=== PATIENT | female | born 1940 | race African-American/Black ===

== ENCOUNTER 2023-08-20 04:25 | Inpatient (IN) | payer OTHER ==
[2023-08-20] MEDS ORDERED: ACETAMINOPHEN 1000 MG/100 ML BAG IVPB ONE (04:40)
[2023-08-20] MEDS ORDERED: methylPREDNISolone NA SUCC 125 MG/2 ML VIAL IVPUSH ONE (04:41)
[2023-08-20] MEDS: ALBUTEROL SO4 2.5/IPRATROPIUM 0.5 INH SOL 3 ML VIAL.NEB. NEB SCH ×8 (04:45→23:48)
[2023-08-20] MEDS ORDERED: ALBUTEROL SO4 2.5/IPRATROPIUM 0.5 INH SOL 3 ML VIAL.NEB. NEB ONE (04:55)
[2023-08-20] MEDS ORDERED: ACETAMINOPHEN INJECTION 100 ML IVPB ONE (04:55)
[2023-08-20] MEDS ORDERED: methylPREDNISolone NA SUCC 125 MG/2 ML VIAL ONE (04:55)
[2023-08-20 05:15] LABS: VENOUS BASE EXCESS 2.8 mmol/L (-2-2); VENOUS O2 SATURATION 47.8 % (70-80); VENOUS PCO2 50.6 mmHg (38-52); VENOUS PH 7.374 (7.310-7.410)
[2023-08-20 05:18] LABS: HEMATOCRIT 33.8 % (32.4-45.2); HEMOGLOBIN 10.4 GM/dL (10.7-15.3); MCH 25.9 pg (25.7-33.7); MCHC 30.9 g/dl (32.0-36.0); MEAN CELL VOLUME 83.8 fl (80-96); MEAN PLT VOLUME 9.2 fl (7.5-11.1); PLATELET COUNT 204 10^3/uL (134-434); RBC 4.03 M/mm3 (3.60-5.2); RDW 16.8 % (11.6-15.6); WHITE BLOOD COUNT 8.2 K/mm3 (4.0-10.0)
[2023-08-20 05:43] LABS: POTASSIUM 4.1 mmol/L (3.5-5.1)
[2023-08-20 05:45] LABS: CALCIUM 9.7 mg/dL (8.5-10.1)
[2023-08-20 05:46] LABS: ALBUMIN 2.6 g/dl (3.4-5.0); BLOOD UREA NITROGEN 31.8 mg/dL (7-18); MAGNESIUM 1.9 mg/dL (1.8-2.4)
[2023-08-20 05:49] LABS: CREATININE 2.3 mg/dL (0.55-1.3)
[2023-08-20 05:51] LABS: BILIRUBIN,TOTAL 0.5 mg/dL (0.2-1); TOT PROT 6.1 g/dl (6.4-8.2)
[2023-08-20 05:54] LABS: N-TERMINAL BNP 1722.1 pg/ml (5-450)
[2023-08-20] MEDS ORDERED: ALBUTEROL SO4 2.5/IPRATROPIUM 0.5 INH SOL 3 ML VIAL.NEB. NEB SCH (08:45)
[2023-08-20] MEDS ORDERED: FERROUS SO4 325 MG TABLET (FP) ONE (08:50)
[2023-08-20] MEDS ORDERED: SPIRONOLACTONE 25 MG TABLET ONE (08:50)
[2023-08-20] MEDS: lamoTRIgine 25 MG TABLET PO SCH (09:16)
[2023-08-20] MEDS: FERROUS SO4 325 MG TABLET (FP) PO SCH (09:16)
[2023-08-20] MEDS: MAGNESIUM OXIDE 400 MG TABLET (FP) PO SCH ×2 (09:16→22:10)
[2023-08-20] MEDS: SPIRONOLACTONE 25 MG TABLET PO SCH (09:16)
[2023-08-20] MEDS ORDERED: TORSEMIDE 20 MG TABLET (FP) PO SCH (10:00)
[2023-08-20] MEDS ORDERED: PATIENT'S OWN MEDICATION (NON-FORMULARY) (Brimonidine Tartrate/Timolol [Combigan 0.2%-0.5% OU SCH ×2 (10:00)
[2023-08-20] MEDS ORDERED: BRIMONIDINE TARTRATE 0.2% OPHTHALMIC 5 ML BOTTLE OU SCH (10:00)
[2023-08-20] MEDS ORDERED: APIXABAN 5 MG TABLET PO SCH ×2 (10:00)
[2023-08-20] MEDS ORDERED: TIMOLOL 0.5% OPHTHALMIC SOL 5 ML BOTTLE OU SCH (10:00)
[2023-08-20] MEDS: ALLOPURINOL 100 MG TABLET (FP) PO SCH (10:40)
[2023-08-20] MEDS: PATIENT'S OWN MEDICATION (NON-FORMULARY) (Fluticasone/Vilanterol 1 PUFF Inhaler) IH SCH (10:41)
[2023-08-20] MEDS: APIXABAN 2.5 MG TABLET PO SCH ×2 (10:42→22:11)
[2023-08-20] MEDS: BENZOCAINE/MENTH/CETYLPYRD CL 1 EACH LOZENGE MM PRN (11:26)
[2023-08-20] MEDS ORDERED: BENZOCAINE/MENTH/CETYLPYRD CL 1 EACH LOZENGE MM ONE (11:26)
[2023-08-20] MEDS ORDERED: guaiFENesin/CODEINE 10 ML UNIT-DOSE CUPS ONE (11:26)
[2023-08-20] MEDS: guaiFENesin 200 MG/10 ML 10 ML UNIT-DOSE CUPS PO PRN ×2 (11:26→20:23)
[2023-08-20] MEDS ORDERED: LATANOPROST 0.005% OPHTH SOLN 2.5ML BOTTLE OU SCH ×2 (11:30→22:00)
[2023-08-20] MEDS ORDERED: PANTOPRAZOLE 40 MG TABLET PO ONE (11:41)
[2023-08-20] MEDS: PANTOPRAZOLE 40 MG TABLET PO SCH (11:43)
[2023-08-20] MEDS ORDERED: FUROSEMIDE 40 MG/4 ML INJECTABLE VIAL IVPUSH ONE (15:00)
[2023-08-20] MEDS: ACETAMINOPHEN 325 MG TABLET (FP) PO PRN (20:22)
[2023-08-20] MEDS ORDERED: methylPREDNISolone NA SUCC 40 MG/1 ML VIAL IVPUSH ONE (22:00)
[2023-08-20] MEDS ORDERED: methylPREDNISolone NA SUCC 40 MG/1 ML VIAL IVPUSH SCH (22:00)
[2023-08-20] MEDS: ATORVASTATIN CA 10 MG TABLET (FP) PO SCH (22:10)
[2023-08-20] MEDS: LATANOPROST 0.005% OPHTH SOLN 2.5ML BOTTLE OU SCH (22:45)
[2023-08-21] MEDS: ALBUTEROL SO4 2.5/IPRATROPIUM 0.5 INH SOL 3 ML VIAL.NEB. NEB SCH ×5 (04:10→20:15)
[2023-08-21 07:58] LABS: BASO % 0.1 % (0-2.0); HEMATOCRIT 33.9 % (32.4-45.2); HEMOGLOBIN 10.8 GM/dL (10.7-15.3); LYMPH % 13.8 % (8-40); MCH 26.1 pg (25.7-33.7); MCHC 31.9 g/dl (32.0-36.0); MEAN PLT VOLUME 8.7 fl (7.5-11.1); NEUT % 83.1 % (42.8-82.8); PLATELET COUNT 210 10^3/uL (134-434); RBC 4.14 M/mm3 (3.60-5.2); RDW 16.9 % (11.6-15.6); WHITE BLOOD COUNT 11.1 K/mm3 (4.0-10.0)
[2023-08-21 07:59] LABS: POTASSIUM 4.2 mmol/L (3.5-5.1)
[2023-08-21 08:01] LABS: CALCIUM 10.6 mg/dL (8.5-10.1)
[2023-08-21 08:02] LABS: MAGNESIUM 1.8 mg/dL (1.8-2.4)
[2023-08-21 08:03] LABS: BLOOD UREA NITROGEN 34.6 mg/dL (7-18)
[2023-08-21 08:04] LABS: ALBUMIN 2.6 g/dl (3.4-5.0)
[2023-08-21 08:05] LABS: CREATININE 2.4 mg/dL (0.55-1.3)
[2023-08-21 08:07] LABS: PHOSPHOROUS 3.2 mg/dL (2.5-4.9); TOT PROT 6.3 g/dl (6.4-8.2)
[2023-08-21 08:12] LABS: BILIRUBIN,TOTAL 0.4 mg/dL (0.2-1)
[2023-08-21] MEDS: APIXABAN 2.5 MG TABLET PO SCH ×2 (10:56→21:53)
[2023-08-21] MEDS: predniSONE 20 MG TABLET (UD) PO SCH (10:56)
[2023-08-21] MEDS: FERROUS SO4 325 MG TABLET (FP) PO SCH (10:56)
[2023-08-21] MEDS: ALLOPURINOL 100 MG TABLET (FP) PO SCH (10:57)
[2023-08-21] MEDS: SPIRONOLACTONE 25 MG TABLET PO SCH (10:57)
[2023-08-21] MEDS: PANTOPRAZOLE 40 MG TABLET PO SCH (10:57)
[2023-08-21] MEDS: lamoTRIgine 25 MG TABLET PO SCH (10:57)
[2023-08-21] MEDS: MAGNESIUM OXIDE 400 MG TABLET (FP) PO SCH ×2 (10:57→21:54)
[2023-08-21] MEDS: ACETAMINOPHEN 325 MG TABLET (FP) PO PRN (11:10)
[2023-08-21 13:00] LABS: URINE APPEARANCE CLEAR; URINE BILIRUBIN NEGATIVE (NEGATIVE); URINE COLOR YELLOW; URINE GLUCOSE (UA) NEGATIVE (NEGATIVE); URINE KETONE NEGATIVE (NEGATIVE); URINE LEUK ESTERASE NEGATIVE (NEGATIVE); URINE NITRITE NEGATIVE (NEGATIVE); URINE PROTEIN NEGATIVE (NEGATIVE); URINE UROBILINOGEN 0.2 mg/dL (0.2-1.0)
[2023-08-21] MEDS: FUROSEMIDE 40 MG/4 ML INJECTABLE VIAL IVPUSH SCH (14:19)
[2023-08-21] MEDS: BENZOCAINE/MENTH/CETYLPYRD CL 1 EACH LOZENGE MM PRN (20:51)
[2023-08-21] MEDS: ATORVASTATIN CA 10 MG TABLET (FP) PO SCH (21:53)
[2023-08-21] MEDS: LATANOPROST 0.005% OPHTH SOLN 2.5ML BOTTLE OU SCH (21:54)
[2023-08-21] MEDS: PATIENT'S OWN MEDICATION (NON-FORMULARY) (Brimonidine Tartrate/Timolol [Combigan 0.2%-0.5% OU SCH (23:04)
[2023-08-22] MEDS: ALBUTEROL SO4 2.5/IPRATROPIUM 0.5 INH SOL 3 ML VIAL.NEB. NEB SCH ×7 (04:12→23:18)
[2023-08-22] MEDS: FUROSEMIDE 40 MG/4 ML INJECTABLE VIAL IVPUSH SCH ×2 (05:59→14:04)
[2023-08-22] MEDS: BENZOCAINE/MENTH/CETYLPYRD CL 1 EACH LOZENGE MM PRN ×2 (06:01→20:26)
[2023-08-22 06:40] LABS: HEMATOCRIT 35.6 % (32.4-45.2); HEMOGLOBIN 10.9 GM/dL (10.7-15.3); MCH 25.7 pg (25.7-33.7); MCHC 30.7 g/dl (32.0-36.0); MEAN CELL VOLUME 83.7 fl (80-96); MEAN PLT VOLUME 8.8 fl (7.5-11.1); PLATELET COUNT 222 10^3/uL (134-434); RBC 4.26 M/mm3 (3.60-5.2); RDW 16.8 % (11.6-15.6); WHITE BLOOD COUNT 15.4 K/mm3 (4.0-10.0)
[2023-08-22 07:03] LABS: POTASSIUM 3.8 mmol/L (3.5-5.1)
[2023-08-22 07:05] LABS: CALCIUM 9.9 mg/dL (8.5-10.1)
[2023-08-22 07:06] LABS: ALBUMIN 2.6 g/dl (3.4-5.0); BLOOD UREA NITROGEN 39.2 mg/dL (7-18)
[2023-08-22 07:08] LABS: BILIRUBIN,DIRECT 0.1 mg/dL (0.0-0.2); CREATININE 2.2 mg/dL (0.55-1.3)
[2023-08-22 07:10] LABS: BILIRUBIN,TOTAL 0.3 mg/dL (0.2-1); TOT PROT 6.4 g/dl (6.4-8.2)
[2023-08-22 08:56] LABS: ANISOCYTOSIS 2+; MACROCYTOSIS 0; OVALOCYTE 1+; TARGET CELLS 2+; TEAR DROP CELLS 1+
[2023-08-22] MEDS: predniSONE 20 MG TABLET (UD) PO SCH (10:32)
[2023-08-22] MEDS: ALLOPURINOL 100 MG TABLET (FP) PO SCH (10:32)
[2023-08-22] MEDS: FERROUS SO4 325 MG TABLET (FP) PO SCH (10:32)
[2023-08-22] MEDS: SPIRONOLACTONE 25 MG TABLET PO SCH (10:32)
[2023-08-22] MEDS: MAGNESIUM OXIDE 400 MG TABLET (FP) PO SCH ×2 (10:32→23:00)
[2023-08-22] MEDS: APIXABAN 2.5 MG TABLET PO SCH ×2 (10:32→23:00)
[2023-08-22] MEDS: PANTOPRAZOLE 40 MG TABLET PO SCH (10:32)
[2023-08-22] MEDS: lamoTRIgine 25 MG TABLET PO SCH (10:33)
[2023-08-22] MEDS: PATIENT'S OWN MEDICATION (NON-FORMULARY) (Brimonidine Tartrate/Timolol [Combigan 0.2%-0.5% OU SCH ×2 (10:33→23:00)
[2023-08-22] MEDS: LATANOPROST 0.005% OPHTH SOLN 2.5ML BOTTLE OU SCH (22:59)
[2023-08-22] MEDS: guaiFENesin 200 MG/10 ML 10 ML UNIT-DOSE CUPS PO PRN (23:00)
[2023-08-22] MEDS: ATORVASTATIN CA 10 MG TABLET (FP) PO SCH (23:00)
[2023-08-23] MEDS: ALBUTEROL SO4 2.5/IPRATROPIUM 0.5 INH SOL 3 ML VIAL.NEB. NEB SCH ×5 (04:30→20:53)
[2023-08-23] MEDS: FUROSEMIDE 40 MG/4 ML INJECTABLE VIAL IVPUSH SCH ×2 (06:35→13:50)
[2023-08-23] MEDS: guaiFENesin 200 MG/10 ML 10 ML UNIT-DOSE CUPS PO PRN ×3 (06:35→18:00)
[2023-08-23] MEDS: BENZOCAINE/MENTH/CETYLPYRD CL 1 EACH LOZENGE MM PRN ×2 (06:38→13:50)
[2023-08-23] MEDS: lamoTRIgine 25 MG TABLET PO SCH (10:11)
[2023-08-23] MEDS: MAGNESIUM OXIDE 400 MG TABLET (FP) PO SCH ×2 (10:11→21:03)
[2023-08-23] MEDS: predniSONE 20 MG TABLET (UD) PO SCH (10:11)
[2023-08-23] MEDS: PANTOPRAZOLE 40 MG TABLET PO SCH (10:11)
[2023-08-23] MEDS: PATIENT'S OWN MEDICATION (NON-FORMULARY) (Brimonidine Tartrate/Timolol [Combigan 0.2%-0.5% OU SCH ×2 (10:11→21:14)
[2023-08-23] MEDS: APIXABAN 2.5 MG TABLET PO SCH ×2 (10:11→21:03)
[2023-08-23] MEDS: SPIRONOLACTONE 25 MG TABLET PO SCH (10:11)
[2023-08-23] MEDS: ALLOPURINOL 100 MG TABLET (FP) PO SCH (10:11)
[2023-08-23] MEDS: FERROUS SO4 325 MG TABLET (FP) PO SCH (10:11)
[2023-08-23 11:23] LABS: HEMOGLOBIN 12.2 GM/dL (10.7-15.3); LYMPH % 10.3 % (8-40); MCH 25.7 pg (25.7-33.7); MCHC 31.3 g/dl (32.0-36.0); MEAN CELL VOLUME 82.1 fl (80-96); MEAN PLT VOLUME 9.6 fl (7.5-11.1); MONO % 5.7 % (3.8-10.2); PLATELET COUNT 239 10^3/uL (134-434); RBC 4.76 M/mm3 (3.60-5.2); RDW 16.8 % (11.6-15.6); WHITE BLOOD COUNT 17.6 K/mm3 (4.0-10.0)
[2023-08-23 11:57] LABS: POTASSIUM 3.5 mmol/L (3.5-5.1)
[2023-08-23 11:58] LABS: ALBUMIN 2.7 g/dl (3.4-5.0); BLOOD UREA NITROGEN 43.9 mg/dL (7-18); CALCIUM 10.1 mg/dL (8.5-10.1)
[2023-08-23 12:01] LABS: BILIRUBIN,DIRECT 0.2 mg/dL (0.0-0.2); CREATININE 2.3 mg/dL (0.55-1.3)
[2023-08-23 12:03] LABS: BILIRUBIN,TOTAL 0.4 mg/dL (0.2-1); TOT PROT 6.8 g/dl (6.4-8.2)
[2023-08-23] MEDS: PATIENT'S OWN MEDICATION (NON-FORMULARY) (Fluticasone/Vilanterol 1 PUFF Inhaler) IH SCH ×3 (14:54→18:00)
[2023-08-23] MEDS: ATORVASTATIN CA 10 MG TABLET (FP) PO SCH (21:03)
[2023-08-23] MEDS: LATANOPROST 0.005% OPHTH SOLN 2.5ML BOTTLE OU SCH (21:05)
[2023-08-24] MEDS: ALBUTEROL SO4 2.5/IPRATROPIUM 0.5 INH SOL 3 ML VIAL.NEB. NEB SCH ×6 (00:20→20:15)
[2023-08-24] MEDS: FUROSEMIDE 40 MG/4 ML INJECTABLE VIAL IVPUSH SCH ×2 (05:46→14:14)
[2023-08-24] MEDS: guaiFENesin 200 MG/10 ML 10 ML UNIT-DOSE CUPS PO PRN ×2 (07:36→17:33)
[2023-08-24] MEDS: ALBUTEROL SO4 HFA INHALER IH PRN (07:45)
[2023-08-24 08:36] LABS: POTASSIUM 3.7 mmol/L (3.5-5.1)
[2023-08-24 08:42] LABS: ALBUMIN 2.4 g/dl (3.4-5.0); BLOOD UREA NITROGEN 41.5 mg/dL (7-18); CALCIUM 9.9 mg/dL (8.5-10.1)
[2023-08-24 08:44] LABS: BILIRUBIN,DIRECT 0.5 mg/dL (0.0-0.2)
[2023-08-24 08:45] LABS: CREATININE 2.2 mg/dL (0.55-1.3)
[2023-08-24 08:46] LABS: BILIRUBIN,TOTAL 0.8 mg/dL (0.2-1)
[2023-08-24 08:47] LABS: TOT PROT 6.6 g/dl (6.4-8.2)
[2023-08-24 09:11] LABS: BASO % 0.1 % (0-2.0); HEMATOCRIT 39.4 % (32.4-45.2); HEMOGLOBIN 12.6 GM/dL (10.7-15.3); LYMPH % 10.7 % (8-40); MCH 26.4 pg (25.7-33.7); MEAN CELL VOLUME 82.4 fl (80-96); MEAN PLT VOLUME 8.7 fl (7.5-11.1); MONO % 5.5 % (3.8-10.2); NEUT % 83.7 % (42.8-82.8); PLATELET COUNT 202 10^3/uL (134-434); RBC 4.78 M/mm3 (3.60-5.2); RDW 16.7 % (11.6-15.6); WHITE BLOOD COUNT 13.6 K/mm3 (4.0-10.0)
[2023-08-24] MEDS ORDERED: ACETAMINOPHEN 325 MG TABLET (FP) PO PRN (09:25)
[2023-08-24] MEDS: MAGNESIUM OXIDE 400 MG TABLET (FP) PO SCH ×2 (09:40→21:12)
[2023-08-24] MEDS: PANTOPRAZOLE 40 MG TABLET PO SCH (09:40)
[2023-08-24] MEDS: PATIENT'S OWN MEDICATION (NON-FORMULARY) (Brimonidine Tartrate/Timolol [Combigan 0.2%-0.5% OU SCH ×2 (09:40→21:15)
[2023-08-24] MEDS: ALLOPURINOL 100 MG TABLET (FP) PO SCH (09:40)
[2023-08-24] MEDS: FERROUS SO4 325 MG TABLET (FP) PO SCH (09:40)
[2023-08-24] MEDS: SPIRONOLACTONE 25 MG TABLET PO SCH (09:40)
[2023-08-24] MEDS: predniSONE 20 MG TABLET (UD) PO SCH (09:40)
[2023-08-24] MEDS: APIXABAN 2.5 MG TABLET PO SCH ×2 (09:40→21:12)
[2023-08-24] MEDS: lamoTRIgine 25 MG TABLET PO SCH (09:40)
[2023-08-24] MEDS: PATIENT'S OWN MEDICATION (NON-FORMULARY) (Fluticasone/Vilanterol 1 PUFF Inhaler) IH SCH (09:41)
[2023-08-24] MEDS ORDERED: AZITHROMYCIN 250 MG TABLET PO SCH (12:28)
[2023-08-24] MEDS: CEFTRIAXONE 1 GM in DEXTROSE 5%-WATER - 50 ML IVPB SCH (14:13)
[2023-08-24] MEDS: DOXYCYCLINE INJECTION 100 MG in DEXTROSE 5%-WATER 100 ML IVPB SCH (21:11)
[2023-08-24] MEDS: ATORVASTATIN CA 10 MG TABLET (FP) PO SCH (21:13)
[2023-08-24] MEDS: LATANOPROST 0.005% OPHTH SOLN 2.5ML BOTTLE OU SCH (21:14)
[2023-08-25] MEDS: ALBUTEROL SO4 2.5/IPRATROPIUM 0.5 INH SOL 3 ML VIAL.NEB. NEB SCH ×6 (01:01→20:00)
[2023-08-25] MEDS: guaiFENesin 200 MG/10 ML 10 ML UNIT-DOSE CUPS PO PRN (01:44)
[2023-08-25] MEDS: FUROSEMIDE 40 MG/4 ML INJECTABLE VIAL IVPUSH SCH (05:47)
[2023-08-25 07:46] LABS: HEMATOCRIT 35.6 % (32.4-45.2); HEMOGLOBIN 10.9 GM/dL (10.7-15.3); MCH 25.7 pg (25.7-33.7); MCHC 30.7 g/dl (32.0-36.0); MEAN CELL VOLUME 83.6 fl (80-96); MEAN PLT VOLUME 9.3 fl (7.5-11.1); PLATELET COUNT 170 10^3/uL (134-434); RBC 4.26 M/mm3 (3.60-5.2); RDW 16.2 % (11.6-15.6); WHITE BLOOD COUNT 16.5 K/mm3 (4.0-10.0)
[2023-08-25 08:15] LABS: BLOOD UREA NITROGEN 60.5 mg/dL (7-18)
[2023-08-25 08:17] LABS: BILIRUBIN,TOTAL 0.7 mg/dL (0.2-1); TOT PROT 5.6 g/dl (6.4-8.2)
[2023-08-25 08:18] LABS: BILIRUBIN,DIRECT 0.4 mg/dL (0.0-0.2); CALCIUM 9.4 mg/dL (8.5-10.1); CREATININE 3.1 mg/dL (0.55-1.3)
[2023-08-25 08:32] LABS: ALBUMIN 1.9 g/dl (3.4-5.0)
[2023-08-25 09:20] LABS: ANISOCYTOSIS 2+; MACROCYTOSIS 2+; OVALOCYTE 2+; TEAR DROP CELLS 2+
[2023-08-25] MEDS ORDERED: AZITHROMYCIN 250 MG TABLET PO SCH (10:00)
[2023-08-25] MEDS: DOXYCYCLINE INJECTION 100 MG in DEXTROSE 5%-WATER 100 ML IVPB SCH ×2 (10:33→22:00)
[2023-08-25] MEDS: ALLOPURINOL 100 MG TABLET (FP) PO SCH (10:34)
[2023-08-25] MEDS: FERROUS SO4 325 MG TABLET (FP) PO SCH (10:34)
[2023-08-25] MEDS: lamoTRIgine 25 MG TABLET PO SCH (10:34)
[2023-08-25] MEDS: CEFTRIAXONE 1 GM in DEXTROSE 5%-WATER - 50 ML IVPB SCH (10:34)
[2023-08-25] MEDS: SPIRONOLACTONE 25 MG TABLET PO SCH (10:34)
[2023-08-25] MEDS: APIXABAN 2.5 MG TABLET PO SCH ×2 (10:34→22:01)
[2023-08-25] MEDS: predniSONE 20 MG TABLET (UD) PO SCH (10:34)
[2023-08-25] MEDS: MAGNESIUM OXIDE 400 MG TABLET (FP) PO SCH ×2 (10:35→22:01)
[2023-08-25] MEDS: PATIENT'S OWN MEDICATION (NON-FORMULARY) (Fluticasone/Vilanterol 1 PUFF Inhaler) IH SCH (10:35)
[2023-08-25] MEDS: PANTOPRAZOLE 40 MG TABLET PO SCH (10:35)
[2023-08-25] MEDS: PATIENT'S OWN MEDICATION (NON-FORMULARY) (Brimonidine Tartrate/Timolol [Combigan 0.2%-0.5% OU SCH ×2 (10:35→22:01)
[2023-08-25 12:25] LABS: N-TERMINAL BNP 2961.5 pg/ml (5-450)
[2023-08-25] MEDS: PIPERACILLIN/TAZOB 2.25 GM 2.25 GM in DEXTROSE 5%-WATER - 50 ML IVPB SCH ×2 (18:01→22:01)
[2023-08-25] MEDS: methylPREDNISolone NA SUCC 40 MG/1 ML VIAL IVPUSH SCH (18:02)
[2023-08-25] MEDS: LATANOPROST 0.005% OPHTH SOLN 2.5ML BOTTLE OU SCH (22:01)
[2023-08-25] MEDS: ATORVASTATIN CA 10 MG TABLET (FP) PO SCH (22:01)
[2023-08-26] MEDS: ALBUTEROL SO4 2.5/IPRATROPIUM 0.5 INH SOL 3 ML VIAL.NEB. NEB SCH ×6 (00:12→19:40)
[2023-08-26] MEDS: PIPERACILLIN/TAZOB 2.25 GM 2.25 GM in DEXTROSE 5%-WATER - 50 ML IVPB SCH ×4 (03:51→21:03)
[2023-08-26] MEDS: methylPREDNISolone NA SUCC 40 MG/1 ML VIAL IVPUSH SCH ×3 (03:51→17:44)
[2023-08-26 07:36] LABS: BASO % 0.3 % (0-2.0); HEMATOCRIT 33.8 % (32.4-45.2); HEMOGLOBIN 10.4 GM/dL (10.7-15.3); LYMPH % 7.9 % (8-40); MCH 25.1 pg (25.7-33.7); MCHC 30.7 g/dl (32.0-36.0); MEAN PLT VOLUME 9.8 fl (7.5-11.1); MONO % 3.8 % (3.8-10.2); PLATELET COUNT 186 10^3/uL (134-434); RBC 4.12 M/mm3 (3.60-5.2); RDW 16.4 % (11.6-15.6); WHITE BLOOD COUNT 12.5 K/mm3 (4.0-10.0)
[2023-08-26 09:09] LABS: ALBUMIN 1.7 g/dl (3.4-5.0); BILIRUBIN,DIRECT 0.3 mg/dL (0.0-0.2); BILIRUBIN,TOTAL 0.8 mg/dL (0.2-1); BLOOD UREA NITROGEN 63.7 mg/dL (7-18); CALCIUM 8.9 mg/dL (8.5-10.1); CREATININE 2.5 mg/dL (0.55-1.3); TOT PROT 5.9 g/dl (6.4-8.2)
[2023-08-26 09:13] LABS: POTASSIUM 3.7 mmol/L (3.5-5.1)
[2023-08-26] MEDS: MAGNESIUM OXIDE 400 MG TABLET (FP) PO SCH ×2 (11:18→21:02)
[2023-08-26] MEDS: lamoTRIgine 25 MG TABLET PO SCH (11:18)
[2023-08-26] MEDS: APIXABAN 2.5 MG TABLET PO SCH ×2 (11:18→21:02)
[2023-08-26] MEDS: DOXYCYCLINE INJECTION 100 MG in DEXTROSE 5%-WATER 100 ML IVPB SCH ×2 (11:19→22:21)
[2023-08-26] MEDS: SPIRONOLACTONE 25 MG TABLET PO SCH (11:19)
[2023-08-26] MEDS: PATIENT'S OWN MEDICATION (NON-FORMULARY) (Fluticasone/Vilanterol 1 PUFF Inhaler) IH SCH (11:19)
[2023-08-26] MEDS: PANTOPRAZOLE 40 MG TABLET PO SCH (11:19)
[2023-08-26] MEDS: ALLOPURINOL 100 MG TABLET (FP) PO SCH (11:19)
[2023-08-26] MEDS: PATIENT'S OWN MEDICATION (NON-FORMULARY) (Brimonidine Tartrate/Timolol [Combigan 0.2%-0.5% OU SCH ×2 (11:19→21:02)
[2023-08-26] MEDS: FERROUS SO4 325 MG TABLET (FP) PO SCH (11:19)
[2023-08-26] MEDS: BENZOCAINE/MENTH/CETYLPYRD CL 1 EACH LOZENGE MM PRN (18:39)
[2023-08-26] MEDS: guaiFENesin 200 MG/10 ML 10 ML UNIT-DOSE CUPS PO PRN ×2 (18:39→22:32)
[2023-08-26] MEDS: LATANOPROST 0.005% OPHTH SOLN 2.5ML BOTTLE OU SCH (20:59)
[2023-08-26] MEDS: ATORVASTATIN CA 10 MG TABLET (FP) PO SCH (21:02)
[2023-08-27] MEDS: ALBUTEROL SO4 2.5/IPRATROPIUM 0.5 INH SOL 3 ML VIAL.NEB. NEB SCH ×6 (00:05→20:50)
[2023-08-27] MEDS: methylPREDNISolone NA SUCC 40 MG/1 ML VIAL IVPUSH SCH ×3 (02:46→17:18)
[2023-08-27] MEDS: PIPERACILLIN/TAZOB 2.25 GM 2.25 GM in DEXTROSE 5%-WATER - 50 ML IVPB SCH ×4 (02:46→22:20)
[2023-08-27] MEDS: guaiFENesin 200 MG/10 ML 10 ML UNIT-DOSE CUPS PO PRN ×3 (02:46→22:20)
[2023-08-27 09:04] LABS: HEMATOCRIT 32.7 % (32.4-45.2); HEMOGLOBIN 10.5 GM/dL (10.7-15.3); MCH 25.8 pg (25.7-33.7); MCHC 32.1 g/dl (32.0-36.0); MEAN CELL VOLUME 80.5 fl (80-96); MEAN PLT VOLUME 9.1 fl (7.5-11.1); PLATELET COUNT 176 10^3/uL (134-434); RBC 4.06 M/mm3 (3.60-5.2); RDW 16.3 % (11.6-15.6); WHITE BLOOD COUNT 10.6 K/mm3 (4.0-10.0)
[2023-08-27 09:22] LABS: POTASSIUM 3.5 mmol/L (3.5-5.1)
[2023-08-27 09:26] LABS: BLOOD UREA NITROGEN 62.2 mg/dL (7-18); CALCIUM 9.1 mg/dL (8.5-10.1)
[2023-08-27 09:28] LABS: ALBUMIN 1.8 g/dl (3.4-5.0)
[2023-08-27 09:29] LABS: BILIRUBIN,DIRECT 0.3 mg/dL (0.0-0.2); CREATININE 2.2 mg/dL (0.55-1.3)
[2023-08-27 09:31] LABS: BILIRUBIN,TOTAL 0.6 mg/dL (0.2-1); TOT PROT 5.9 g/dl (6.4-8.2)
[2023-08-27] MEDS: DOXYCYCLINE INJECTION 100 MG in DEXTROSE 5%-WATER 100 ML IVPB SCH (10:05)
[2023-08-27] MEDS: MAGNESIUM OXIDE 400 MG TABLET (FP) PO SCH ×2 (10:06→22:17)
[2023-08-27] MEDS: APIXABAN 2.5 MG TABLET PO SCH ×2 (10:06→22:16)
[2023-08-27] MEDS: FERROUS SO4 325 MG TABLET (FP) PO SCH (10:06)
[2023-08-27] MEDS: PANTOPRAZOLE 40 MG TABLET PO SCH (10:06)
[2023-08-27] MEDS: lamoTRIgine 25 MG TABLET PO SCH (10:06)
[2023-08-27] MEDS: ALLOPURINOL 100 MG TABLET (FP) PO SCH (10:06)
[2023-08-27] MEDS: PATIENT'S OWN MEDICATION (NON-FORMULARY) (Fluticasone/Vilanterol 1 PUFF Inhaler) IH SCH (10:07)
[2023-08-27] MEDS: SPIRONOLACTONE 25 MG TABLET PO SCH (10:07)
[2023-08-27] MEDS: PATIENT'S OWN MEDICATION (NON-FORMULARY) (Brimonidine Tartrate/Timolol [Combigan 0.2%-0.5% OU SCH ×2 (10:07→22:22)
[2023-08-27 11:18] LABS: ANISOCYTOSIS 0; HELMET CELLS 0; HOWELL-JOLLY BODIES 0; MACROCYTOSIS 0; OVALOCYTE 0; ROULEAU 0; SICKELED CELLS 0; TARGET CELLS 0; TEAR DROP CELLS 0; TOXIC GRANULATION 0
[2023-08-27] MEDS: ATORVASTATIN CA 10 MG TABLET (FP) PO SCH (22:17)
[2023-08-27] MEDS: LATANOPROST 0.005% OPHTH SOLN 2.5ML BOTTLE OU SCH (22:22)
[2023-08-27] MEDS: BENZOCAINE/MENTH/CETYLPYRD CL 1 EACH LOZENGE MM PRN (22:22)
[2023-08-28] MEDS: PIPERACILLIN/TAZOB 2.25 GM 2.25 GM in DEXTROSE 5%-WATER - 50 ML IVPB SCH ×4 (02:32→21:59)
[2023-08-28] MEDS: methylPREDNISolone NA SUCC 40 MG/1 ML VIAL IVPUSH SCH ×3 (02:32→18:19)
[2023-08-28] MEDS: ALBUTEROL SO4 2.5/IPRATROPIUM 0.5 INH SOL 3 ML VIAL.NEB. NEB SCH ×6 (04:59→20:00)
[2023-08-28 07:35] LABS: HEMATOCRIT 32.7 % (32.4-45.2); HEMOGLOBIN 10.4 GM/dL (10.7-15.3); MCHC 31.8 g/dl (32.0-36.0); MEAN CELL VOLUME 81.8 fl (80-96); MEAN PLT VOLUME 9.8 fl (7.5-11.1); PLATELET COUNT 190 10^3/uL (134-434); RDW 15.9 % (11.6-15.6); WHITE BLOOD COUNT 10.3 K/mm3 (4.0-10.0)
[2023-08-28 08:00] LABS: POTASSIUM 3.7 mmol/L (3.5-5.1)
[2023-08-28 08:06] LABS: ALBUMIN 1.9 g/dl (3.4-5.0); BLOOD UREA NITROGEN 58.1 mg/dL (7-18); CALCIUM 9.5 mg/dL (8.5-10.1); MAGNESIUM 2.1 mg/dL (1.8-2.4)
[2023-08-28 08:08] LABS: PHOSPHOROUS 2.1 mg/dL (2.5-4.9)
[2023-08-28 08:09] LABS: CREATININE 1.9 mg/dL (0.55-1.3)
[2023-08-28 08:10] LABS: BILIRUBIN,TOTAL 0.6 mg/dL (0.2-1); TOT PROT 5.9 g/dl (6.4-8.2)
[2023-08-28 09:16] LABS: ANISOCYTOSIS 2+; MACROCYTOSIS 2+; OVALOCYTE 1+
[2023-08-28] MEDS ORDERED: TIOTROPIUM BROMIDE 2.5 MCG (SPIRIVA) RESPIMAT INHALER IH SCH ×2 (10:00)
[2023-08-28] MEDS ORDERED: TORSEMIDE 20 MG TABLET (FP) PO SCH ×2 (10:00)
[2023-08-28] MEDS: FERROUS SO4 325 MG TABLET (FP) PO SCH (11:21)
[2023-08-28] MEDS: ALLOPURINOL 100 MG TABLET (FP) PO SCH (11:21)
[2023-08-28] MEDS: lamoTRIgine 25 MG TABLET PO SCH (11:21)
[2023-08-28] MEDS: APIXABAN 2.5 MG TABLET PO SCH ×2 (11:22→22:28)
[2023-08-28] MEDS: PATIENT'S OWN MEDICATION (NON-FORMULARY) (Brimonidine Tartrate/Timolol [Combigan 0.2%-0.5% OU SCH ×2 (11:22→22:44)
[2023-08-28] MEDS: PANTOPRAZOLE 40 MG TABLET PO SCH (11:22)
[2023-08-28] MEDS: PATIENT'S OWN MEDICATION (NON-FORMULARY) (Fluticasone/Vilanterol 1 PUFF Inhaler) IH SCH (11:22)
[2023-08-28] MEDS: MAGNESIUM OXIDE 400 MG TABLET (FP) PO SCH ×2 (11:22→22:28)
[2023-08-28] MEDS: SPIRONOLACTONE 25 MG TABLET PO SCH (11:22)
[2023-08-28] MEDS: guaiFENesin 200 MG/10 ML 10 ML UNIT-DOSE CUPS PO SCH (18:19)
[2023-08-28] MEDS: BENZOCAINE/MENTH/CETYLPYRD CL 1 EACH LOZENGE MM PRN (22:28)
[2023-08-28] MEDS: ATORVASTATIN CA 10 MG TABLET (FP) PO SCH (22:28)
[2023-08-28] MEDS: LATANOPROST 0.005% OPHTH SOLN 2.5ML BOTTLE OU SCH (22:43)
[2023-08-29] MEDS: ALBUTEROL SO4 2.5/IPRATROPIUM 0.5 INH SOL 3 ML VIAL.NEB. NEB SCH ×6 (00:04→20:05)
[2023-08-29] MEDS: guaiFENesin 200 MG/10 ML 10 ML UNIT-DOSE CUPS PO SCH ×4 (00:09→18:26)
[2023-08-29] MEDS: PIPERACILLIN/TAZOB 2.25 GM 2.25 GM in DEXTROSE 5%-WATER - 50 ML IVPB SCH ×4 (02:46→21:21)
[2023-08-29] MEDS: methylPREDNISolone NA SUCC 40 MG/1 ML VIAL IVPUSH SCH ×3 (02:46→21:21)
[2023-08-29 07:42] LABS: HEMATOCRIT 32.4 % (32.4-45.2); HEMOGLOBIN 10.2 GM/dL (10.7-15.3); MCH 25.5 pg (25.7-33.7); MCHC 31.6 g/dl (32.0-36.0); MEAN CELL VOLUME 80.7 fl (80-96); MEAN PLT VOLUME 9.2 fl (7.5-11.1); PLATELET COUNT 171 10^3/uL (134-434); RBC 4.01 M/mm3 (3.60-5.2); RDW 16.1 % (11.6-15.6)
[2023-08-29 08:02] LABS: POTASSIUM 3.8 mmol/L (3.5-5.1)
[2023-08-29 08:09] LABS: CALCIUM 9.1 mg/dL (8.5-10.1)
[2023-08-29 08:10] LABS: ALBUMIN 1.8 g/dl (3.4-5.0); BLOOD UREA NITROGEN 67.8 mg/dL (7-18); CREATININE 1.8 mg/dL (0.55-1.3); MAGNESIUM 2.5 mg/dL (1.8-2.4)
[2023-08-29 08:11] LABS: BILIRUBIN,TOTAL 0.6 mg/dL (0.2-1); TOT PROT 5.5 g/dl (6.4-8.2)
[2023-08-29 08:50] LABS: ANISOCYTOSIS 1+; MACROCYTOSIS 1+; OVALOCYTE 1+
[2023-08-29] MEDS: PANTOPRAZOLE 40 MG TABLET PO SCH (10:30)
[2023-08-29] MEDS: APIXABAN 2.5 MG TABLET PO SCH ×2 (10:30→21:22)
[2023-08-29] MEDS: FERROUS SO4 325 MG TABLET (FP) PO SCH (10:30)
[2023-08-29] MEDS: SPIRONOLACTONE 25 MG TABLET PO SCH (10:31)
[2023-08-29] MEDS: ALLOPURINOL 100 MG TABLET (FP) PO SCH (10:31)
[2023-08-29] MEDS: MAGNESIUM OXIDE 400 MG TABLET (FP) PO SCH ×2 (10:31→21:22)
[2023-08-29] MEDS: lamoTRIgine 25 MG TABLET PO SCH (10:32)
[2023-08-29] MEDS: ALBUTEROL SO4 HFA INHALER IH PRN (11:51)
[2023-08-29] MEDS: PATIENT'S OWN MEDICATION (NON-FORMULARY) (Fluticasone/Vilanterol 1 PUFF Inhaler) IH SCH (12:15)
[2023-08-29] MEDS: PATIENT'S OWN MEDICATION (NON-FORMULARY) (Brimonidine Tartrate/Timolol [Combigan 0.2%-0.5% OU SCH ×2 (12:15→21:26)
[2023-08-29] MEDS ORDERED: NAPH,MB-DB/K PH,MBDB POWDER PACKET PO ONE (17:23)
[2023-08-29] MEDS ORDERED: CODEINE SO4 30 MG TABLET PO PRN (17:23)
[2023-08-29] MEDS: INSULIN SLIDING SCALE (NOVOLOG) 1 VIAL SQ SCH (21:21)
[2023-08-29] MEDS: ATORVASTATIN CA 10 MG TABLET (FP) PO SCH (21:22)
[2023-08-29] MEDS: LATANOPROST 0.005% OPHTH SOLN 2.5ML BOTTLE OU SCH (21:24)
[2023-08-29] MEDS ORDERED: INSULIN SLIDING SCALE (NOVOLOG) 1 VIAL SQ SCH (22:00)
[2023-08-30] MEDS: guaiFENesin 200 MG/10 ML 10 ML UNIT-DOSE CUPS PO SCH ×4 (00:05→18:29)
[2023-08-30] MEDS: BENZOCAINE/MENTH/CETYLPYRD CL 1 EACH LOZENGE MM PRN (00:05)
[2023-08-30] MEDS: PIPERACILLIN/TAZOB 2.25 GM 2.25 GM in DEXTROSE 5%-WATER - 50 ML IVPB SCH ×4 (02:08→21:27)
[2023-08-30] MEDS: ALBUTEROL SO4 2.5/IPRATROPIUM 0.5 INH SOL 3 ML VIAL.NEB. NEB SCH ×6 (04:00→20:05)
[2023-08-30] MEDS: INSULIN SLIDING SCALE (NOVOLOG) 1 VIAL SQ SCH ×4 (06:02→21:49)
[2023-08-30 08:39] LABS: ARTERIAL BLD GAS O2 SATURATION 96.8 % (95-98); ARTERIAL BLOOD GAS BASE EXCESS 6.7 mmol/L (-2-2); ARTERIAL BLOOD GAS PO2 88.4 mmHg (80-100)
[2023-08-30 08:40] LABS: ALLENS TEST POSITIVE
[2023-08-30] MEDS ORDERED: MAGNESIUM CITRATE 300 ML BOTTLE PO ONE (10:00)
[2023-08-30] MEDS: methylPREDNISolone NA SUCC 40 MG/1 ML VIAL IVPUSH SCH ×2 (10:27→21:32)
[2023-08-30] MEDS: ALLOPURINOL 100 MG TABLET (FP) PO SCH (10:28)
[2023-08-30] MEDS: FERROUS SO4 325 MG TABLET (FP) PO SCH (10:28)
[2023-08-30] MEDS: APIXABAN 2.5 MG TABLET PO SCH ×2 (10:28→21:31)
[2023-08-30] MEDS: MAGNESIUM OXIDE 400 MG TABLET (FP) PO SCH ×2 (10:28→21:31)
[2023-08-30] MEDS: SPIRONOLACTONE 25 MG TABLET PO SCH (10:28)
[2023-08-30] MEDS: PANTOPRAZOLE 40 MG TABLET PO SCH (10:28)
[2023-08-30] MEDS: lamoTRIgine 25 MG TABLET PO SCH (10:28)
[2023-08-30] MEDS: PATIENT'S OWN MEDICATION (NON-FORMULARY) (Brimonidine Tartrate/Timolol [Combigan 0.2%-0.5% OU SCH ×2 (10:29→21:31)
[2023-08-30] MEDS: PATIENT'S OWN MEDICATION (NON-FORMULARY) (Fluticasone/Vilanterol 1 PUFF Inhaler) IH SCH (10:29)
[2023-08-30 13:59] LABS: HEMATOCRIT 33.9 % (32.4-45.2); HEMOGLOBIN 10.6 GM/dL (10.7-15.3); MCH 25.5 pg (25.7-33.7); MCHC 31.2 g/dl (32.0-36.0); MEAN CELL VOLUME 81.8 fl (80-96); MEAN PLT VOLUME 9.7 fl (7.5-11.1); PLATELET COUNT 194 10^3/uL (134-434); RBC 4.14 M/mm3 (3.60-5.2); WHITE BLOOD COUNT 15.1 K/mm3 (4.0-10.0)
[2023-08-30 14:16] LABS: POTASSIUM 3.9 mmol/L (3.5-5.1)
[2023-08-30 14:18] LABS: BLOOD UREA NITROGEN 67.8 mg/dL (7-18)
[2023-08-30 14:22] LABS: CREATININE 1.8 mg/dL (0.55-1.3)
[2023-08-30 18:46] LABS: ANISOCYTOSIS 1+; MACROCYTOSIS 1+; OVALOCYTE 1+; TARGET CELLS 1+; TEAR DROP CELLS 1+; TOXIC GRANULATION 1+
[2023-08-30 18:47] LABS: PLATELET ESTIMATE ADEQUATE
[2023-08-30] MEDS: ATORVASTATIN CA 10 MG TABLET (FP) PO SCH (21:31)
[2023-08-30] MEDS: LATANOPROST 0.005% OPHTH SOLN 2.5ML BOTTLE OU SCH (21:32)
[2023-08-31] MEDS: ALBUTEROL SO4 2.5/IPRATROPIUM 0.5 INH SOL 3 ML VIAL.NEB. NEB SCH ×6 (00:27→20:25)
[2023-08-31] MEDS: PIPERACILLIN/TAZOB 2.25 GM 2.25 GM in DEXTROSE 5%-WATER - 50 ML IVPB SCH ×2 (02:59→10:01)
[2023-08-31] MEDS: guaiFENesin 200 MG/10 ML 10 ML UNIT-DOSE CUPS PO SCH ×4 (02:59→17:37)
[2023-08-31] MEDS: INSULIN SLIDING SCALE (NOVOLOG) 1 VIAL SQ SCH ×4 (06:11→21:42)
[2023-08-31 08:14] LABS: HEMATOCRIT 34.2 % (32.4-45.2); HEMOGLOBIN 10.8 GM/dL (10.7-15.3); MCH 25.5 pg (25.7-33.7); MCHC 31.6 g/dl (32.0-36.0); MEAN CELL VOLUME 80.6 fl (80-96); MEAN PLT VOLUME 8.6 fl (7.5-11.1); PLATELET COUNT 189 10^3/uL (134-434); RBC 4.25 M/mm3 (3.60-5.2); WHITE BLOOD COUNT 13.5 K/mm3 (4.0-10.0)
[2023-08-31 08:32] LABS: ALBUMIN 1.9 g/dl (3.4-5.0); BLOOD UREA NITROGEN 69.4 mg/dL (7-18)
[2023-08-31 08:35] LABS: CREATININE 1.8 mg/dL (0.55-1.3)
[2023-08-31 08:36] LABS: BILIRUBIN,TOTAL 0.9 mg/dL (0.2-1)
[2023-08-31 08:37] LABS: TOT PROT 5.6 g/dl (6.4-8.2)
[2023-08-31 09:41] LABS: ANISOCYTOSIS 1+; MACROCYTOSIS 0; OVALOCYTE 1+; TARGET CELLS 1+
[2023-08-31] MEDS: SPIRONOLACTONE 25 MG TABLET PO SCH (09:57)
[2023-08-31] MEDS: ACETAMINOPHEN 325 MG TABLET (FP) PO PRN (09:57)
[2023-08-31] MEDS: MAGNESIUM OXIDE 400 MG TABLET (FP) PO SCH ×2 (09:58→21:42)
[2023-08-31] MEDS: PANTOPRAZOLE 40 MG TABLET PO SCH (09:58)
[2023-08-31] MEDS: FERROUS SO4 325 MG TABLET (FP) PO SCH (09:58)
[2023-08-31] MEDS: ALLOPURINOL 100 MG TABLET (FP) PO SCH (09:58)
[2023-08-31] MEDS: lamoTRIgine 25 MG TABLET PO SCH (09:58)
[2023-08-31] MEDS: APIXABAN 2.5 MG TABLET PO SCH ×2 (09:58→21:42)
[2023-08-31] MEDS: methylPREDNISolone NA SUCC 40 MG/1 ML VIAL IVPUSH SCH ×2 (09:59→21:42)
[2023-08-31] MEDS: PATIENT'S OWN MEDICATION (NON-FORMULARY) (Fluticasone/Vilanterol 1 PUFF Inhaler) IH SCH (10:02)
[2023-08-31] MEDS: PATIENT'S OWN MEDICATION (NON-FORMULARY) (Brimonidine Tartrate/Timolol [Combigan 0.2%-0.5% OU SCH ×2 (10:04→21:42)
[2023-08-31 14:34] VITALS: BMI 35.4
[2023-08-31] MEDS: LATANOPROST 0.005% OPHTH SOLN 2.5ML BOTTLE OU SCH (21:41)
[2023-08-31] MEDS: ATORVASTATIN CA 10 MG TABLET (FP) PO SCH (21:42)
[2023-09-01] MEDS: ALBUTEROL SO4 2.5/IPRATROPIUM 0.5 INH SOL 3 ML VIAL.NEB. NEB SCH ×8 (01:27→23:35)
[2023-09-01] MEDS: guaiFENesin 200 MG/10 ML 10 ML UNIT-DOSE CUPS PO SCH ×5 (01:28→22:21)
[2023-09-01] MEDS: INSULIN SLIDING SCALE (NOVOLOG) 1 VIAL SQ SCH ×4 (06:15→22:33)
[2023-09-01 08:24] LABS: HEMATOCRIT 35.4 % (32.4-45.2); HEMOGLOBIN 11.1 GM/dL (10.7-15.3); MCH 25.5 pg (25.7-33.7); MCHC 31.3 g/dl (32.0-36.0); MEAN CELL VOLUME 81.6 fl (80-96); MEAN PLT VOLUME 8.8 fl (7.5-11.1); PLATELET COUNT 213 10^3/uL (134-434); POTASSIUM 4.5 mmol/L (3.5-5.1); RBC 4.34 M/mm3 (3.60-5.2); WHITE BLOOD COUNT 13.8 K/mm3 (4.0-10.0)
[2023-09-01 08:28] LABS: BLOOD UREA NITROGEN 68.2 mg/dL (7-18); MAGNESIUM 2.8 mg/dL (1.8-2.4)
[2023-09-01 08:31] LABS: CREATININE 1.9 mg/dL (0.55-1.3); PHOSPHOROUS 2.8 mg/dL (2.5-4.9)
[2023-09-01 08:33] LABS: BILIRUBIN,TOTAL 0.8 mg/dL (0.2-1); TOT PROT 5.7 g/dl (6.4-8.2)
[2023-09-01 09:07] LABS: ANISOCYTOSIS 0; MACROCYTOSIS 0
[2023-09-01] MEDS: lamoTRIgine 25 MG TABLET PO SCH (09:44)
[2023-09-01] MEDS: APIXABAN 2.5 MG TABLET PO SCH ×2 (09:44→22:20)
[2023-09-01] MEDS: PATIENT'S OWN MEDICATION (NON-FORMULARY) (Brimonidine Tartrate/Timolol [Combigan 0.2%-0.5% OU SCH ×2 (09:44→22:24)
[2023-09-01] MEDS: ALLOPURINOL 100 MG TABLET (FP) PO SCH (09:44)
[2023-09-01] MEDS: SPIRONOLACTONE 25 MG TABLET PO SCH (09:44)
[2023-09-01] MEDS: MAGNESIUM OXIDE 400 MG TABLET (FP) PO SCH ×2 (09:44→22:20)
[2023-09-01] MEDS: predniSONE 20 MG TABLET (UD) PO SCH (09:44)
[2023-09-01] MEDS: FERROUS SO4 325 MG TABLET (FP) PO SCH (09:44)
[2023-09-01] MEDS: PANTOPRAZOLE 40 MG TABLET PO SCH (09:44)
[2023-09-01] MEDS: PATIENT'S OWN MEDICATION (NON-FORMULARY) (Fluticasone/Vilanterol 1 PUFF Inhaler) IH SCH (09:45)
[2023-09-01] MEDS: ATORVASTATIN CA 10 MG TABLET (FP) PO SCH (22:20)
[2023-09-01] MEDS: LATANOPROST 0.005% OPHTH SOLN 2.5ML BOTTLE OU SCH (22:23)
[2023-09-01] MEDS: BENZOCAINE/MENTH/CETYLPYRD CL 1 EACH LOZENGE MM PRN (22:37)
[2023-09-01] MEDS: oxyCODONE HCL 5 MG TABLET PO PRN (22:46)
[2023-09-02] MEDS: guaiFENesin 200 MG/10 ML 10 ML UNIT-DOSE CUPS PO SCH ×4 (01:40→17:36)
[2023-09-02] MEDS: ALBUTEROL SO4 2.5/IPRATROPIUM 0.5 INH SOL 3 ML VIAL.NEB. NEB SCH ×5 (04:50→19:55)
[2023-09-02] MEDS: INSULIN SLIDING SCALE (NOVOLOG) 1 VIAL SQ SCH ×4 (06:10→22:33)
[2023-09-02 06:51] LABS: HEMATOCRIT 34.9 % (32.4-45.2); MCH 25.9 pg (25.7-33.7); MCHC 31.7 g/dl (32.0-36.0); MEAN CELL VOLUME 81.9 fl (80-96); MEAN PLT VOLUME 8.3 fl (7.5-11.1); PLATELET COUNT 208 10^3/uL (134-434); RBC 4.26 M/mm3 (3.60-5.2); RDW 15.8 % (11.6-15.6); WHITE BLOOD COUNT 15.3 K/mm3 (4.0-10.0)
[2023-09-02 07:10] LABS: POTASSIUM 4.5 mmol/L (3.5-5.1)
[2023-09-02 07:13] LABS: CALCIUM 8.8 mg/dL (8.5-10.1)
[2023-09-02 07:14] LABS: BLOOD UREA NITROGEN 62.9 mg/dL (7-18)
[2023-09-02 07:16] LABS: CREATININE 1.7 mg/dL (0.55-1.3)
[2023-09-02 07:18] LABS: BILIRUBIN,TOTAL 0.8 mg/dL (0.2-1); TOT PROT 5.5 g/dl (6.4-8.2)
[2023-09-02 09:00] LABS: ANISOCYTOSIS 0; MACROCYTOSIS 0
[2023-09-02] MEDS: predniSONE 20 MG TABLET (UD) PO SCH (09:26)
[2023-09-02] MEDS: lamoTRIgine 25 MG TABLET PO SCH (09:26)
[2023-09-02] MEDS: FERROUS SO4 325 MG TABLET (FP) PO SCH (09:26)
[2023-09-02] MEDS: MAGNESIUM OXIDE 400 MG TABLET (FP) PO SCH ×2 (09:27→22:27)
[2023-09-02] MEDS: APIXABAN 2.5 MG TABLET PO SCH ×2 (09:27→22:27)
[2023-09-02] MEDS: PANTOPRAZOLE 40 MG TABLET PO SCH (09:27)
[2023-09-02] MEDS: SPIRONOLACTONE 25 MG TABLET PO SCH (09:27)
[2023-09-02] MEDS: ALLOPURINOL 100 MG TABLET (FP) PO SCH (09:27)
[2023-09-02] MEDS: BUDESONIDE/FORMETEROL FUMARATE 160/4.5 mcg INHALER IH SCH ×2 (09:27→22:41)
[2023-09-02] MEDS: PATIENT'S OWN MEDICATION (NON-FORMULARY) (Brimonidine Tartrate/Timolol [Combigan 0.2%-0.5% OU SCH ×2 (09:27→22:41)
[2023-09-02] MEDS: oxyCODONE HCL 5 MG TABLET PO PRN (22:25)
[2023-09-02] MEDS: ATORVASTATIN CA 10 MG TABLET (FP) PO SCH (22:27)
[2023-09-02] MEDS: LATANOPROST 0.005% OPHTH SOLN 2.5ML BOTTLE OU SCH (22:37)
[2023-09-03] MEDS: ALBUTEROL SO4 2.5/IPRATROPIUM 0.5 INH SOL 3 ML VIAL.NEB. NEB SCH ×6 (00:30→19:45)
[2023-09-03] MEDS: guaiFENesin 200 MG/10 ML 10 ML UNIT-DOSE CUPS PO SCH ×5 (00:38→23:35)
[2023-09-03] MEDS: INSULIN SLIDING SCALE (NOVOLOG) 1 VIAL SQ SCH ×4 (06:32→21:03)
[2023-09-03] MEDS: FERROUS SO4 325 MG TABLET (FP) PO SCH (10:14)
[2023-09-03] MEDS: PANTOPRAZOLE 40 MG TABLET PO SCH (10:14)
[2023-09-03] MEDS: ALLOPURINOL 100 MG TABLET (FP) PO SCH (10:14)
[2023-09-03] MEDS: APIXABAN 2.5 MG TABLET PO SCH ×2 (10:15→21:01)
[2023-09-03] MEDS: predniSONE 20 MG TABLET (UD) PO SCH (10:15)
[2023-09-03] MEDS: SPIRONOLACTONE 25 MG TABLET PO SCH (10:15)
[2023-09-03] MEDS: lamoTRIgine 25 MG TABLET PO SCH (10:15)
[2023-09-03] MEDS: MAGNESIUM OXIDE 400 MG TABLET (FP) PO SCH ×2 (10:15→21:01)
[2023-09-03] MEDS: ALBUTEROL SO4 HFA INHALER IH PRN (11:17)
[2023-09-03] MEDS: PATIENT'S OWN MEDICATION (NON-FORMULARY) (Brimonidine Tartrate/Timolol [Combigan 0.2%-0.5% OU SCH ×2 (12:48→21:09)
[2023-09-03] MEDS: BUDESONIDE/FORMETEROL FUMARATE 160/4.5 mcg INHALER IH SCH ×2 (12:49→21:02)
[2023-09-03] MEDS: ATORVASTATIN CA 10 MG TABLET (FP) PO SCH (21:01)
[2023-09-03] MEDS: LATANOPROST 0.005% OPHTH SOLN 2.5ML BOTTLE OU SCH (21:02)
[2023-09-03] MEDS: oxyCODONE HCL 5 MG TABLET PO PRN (21:05)
[2023-09-04] MEDS: ALBUTEROL SO4 2.5/IPRATROPIUM 0.5 INH SOL 3 ML VIAL.NEB. NEB SCH ×3 (00:58→07:45)
[2023-09-04] MEDS: INSULIN SLIDING SCALE (NOVOLOG) 1 VIAL SQ SCH ×4 (06:28→22:13)
[2023-09-04] MEDS: ACETAMINOPHEN 325 MG TABLET (FP) PO PRN (06:29)
[2023-09-04] MEDS: guaiFENesin 200 MG/10 ML 10 ML UNIT-DOSE CUPS PO SCH ×3 (06:56→17:04)
[2023-09-04] MEDS: SPIRONOLACTONE 25 MG TABLET PO SCH (09:33)
[2023-09-04] MEDS: lamoTRIgine 25 MG TABLET PO SCH (09:33)
[2023-09-04] MEDS: APIXABAN 2.5 MG TABLET PO SCH ×2 (09:34→22:13)
[2023-09-04] MEDS: MAGNESIUM OXIDE 400 MG TABLET (FP) PO SCH ×2 (09:35→22:13)
[2023-09-04] MEDS: predniSONE 20 MG TABLET (UD) PO SCH (09:35)
[2023-09-04] MEDS: ALLOPURINOL 100 MG TABLET (FP) PO SCH (09:35)
[2023-09-04] MEDS: FERROUS SO4 325 MG TABLET (FP) PO SCH (09:35)
[2023-09-04] MEDS: PANTOPRAZOLE 40 MG TABLET PO SCH (09:35)
[2023-09-04] MEDS: PATIENT'S OWN MEDICATION (NON-FORMULARY) (Brimonidine Tartrate/Timolol [Combigan 0.2%-0.5% OU SCH ×2 (09:36→22:15)
[2023-09-04] MEDS: BUDESONIDE/FORMETEROL FUMARATE 160/4.5 mcg INHALER IH SCH ×2 (09:49→22:15)
[2023-09-04] MEDS: ATORVASTATIN CA 10 MG TABLET (FP) PO SCH (22:13)
[2023-09-04] MEDS: LATANOPROST 0.005% OPHTH SOLN 2.5ML BOTTLE OU SCH (22:15)
[2023-09-04] MEDS: oxyCODONE HCL 5 MG TABLET PO PRN (22:19)
[2023-09-05] MEDS: guaiFENesin 200 MG/10 ML 10 ML UNIT-DOSE CUPS PO SCH ×5 (00:25→17:37)
[2023-09-05] MEDS: INSULIN SLIDING SCALE (NOVOLOG) 1 VIAL SQ SCH ×4 (06:13→21:26)
[2023-09-05] MEDS: predniSONE 10 MG TABLET (UD) PO SCH (10:21)
[2023-09-05] MEDS: FERROUS SO4 325 MG TABLET (FP) PO SCH (10:21)
[2023-09-05] MEDS: lamoTRIgine 25 MG TABLET PO SCH (10:21)
[2023-09-05] MEDS: ALLOPURINOL 100 MG TABLET (FP) PO SCH (10:21)
[2023-09-05] MEDS: PANTOPRAZOLE 40 MG TABLET PO SCH (10:22)
[2023-09-05] MEDS: PATIENT'S OWN MEDICATION (NON-FORMULARY) (Brimonidine Tartrate/Timolol [Combigan 0.2%-0.5% OU SCH ×2 (10:22→21:25)
[2023-09-05] MEDS: MAGNESIUM OXIDE 400 MG TABLET (FP) PO SCH ×2 (10:22→21:26)
[2023-09-05] MEDS: SPIRONOLACTONE 25 MG TABLET PO SCH (10:22)
[2023-09-05] MEDS: APIXABAN 2.5 MG TABLET PO SCH ×2 (10:22→21:26)
[2023-09-05] MEDS: BUDESONIDE/FORMETEROL FUMARATE 160/4.5 mcg INHALER IH SCH ×2 (10:22→21:27)
[2023-09-05 17:52] VITALS: RESP 20
[2023-09-05] MEDS: oxyCODONE HCL 5 MG TABLET PO PRN (20:18)
[2023-09-05] MEDS: ATORVASTATIN CA 10 MG TABLET (FP) PO SCH (21:26)
[2023-09-05] MEDS: LATANOPROST 0.005% OPHTH SOLN 2.5ML BOTTLE OU SCH (21:27)
[2023-09-06] MEDS: guaiFENesin 200 MG/10 ML 10 ML UNIT-DOSE CUPS PO SCH ×3 (01:02→11:49)
[2023-09-06] MEDS: INSULIN SLIDING SCALE (NOVOLOG) 1 VIAL SQ SCH ×3 (06:28→16:29)
[2023-09-06] MEDS: predniSONE 10 MG TABLET (UD) PO SCH (10:15)
[2023-09-06] MEDS: ALLOPURINOL 100 MG TABLET (FP) PO SCH (10:16)
[2023-09-06] MEDS: APIXABAN 2.5 MG TABLET PO SCH (10:16)
[2023-09-06] MEDS: MAGNESIUM OXIDE 400 MG TABLET (FP) PO SCH (10:16)
[2023-09-06] MEDS: PANTOPRAZOLE 40 MG TABLET PO SCH (10:16)
[2023-09-06] MEDS: lamoTRIgine 25 MG TABLET PO SCH (10:16)
[2023-09-06] MEDS: FERROUS SO4 325 MG TABLET (FP) PO SCH (10:16)
[2023-09-06] MEDS: SPIRONOLACTONE 25 MG TABLET PO SCH (10:16)
[2023-09-06] MEDS: ALBUTEROL SO4 HFA INHALER IH PRN (10:40)
[2023-09-06] MEDS: BUDESONIDE/FORMETEROL FUMARATE 160/4.5 mcg INHALER IH SCH (10:41)
[2023-09-06] MEDS: PATIENT'S OWN MEDICATION (NON-FORMULARY) (Brimonidine Tartrate/Timolol [Combigan 0.2%-0.5% OU SCH (11:53)
[2023-09-06 14:51] VITALS: BP 127/75; PULSE 117; TEMP 98
== END 2023-09-06 16:52 | disposition home or self-care (01) | DRG 291 ==
LOC: JER 04:25 → JERBED 06:39 → J4S 12:37
PROVIDERS: ADMIT Internal Medicine; ATTEND Internal Medicine
DX: I13.0 Hypertensive heart and chronic kidney disease with heart failure and stage 1 through stage 4 chronic kidney disease, or unspecified chronic kidney disease (principal); I50.23 Acute on chronic systolic (congestive) heart failure; J18.9 Pneumonia, unspecified organism; J44.0 Chronic obstructive pulmonary disease with (acute) lower respiratory infection; J45.901 Unspecified asthma with (acute) exacerbation; N17.9 Acute kidney failure, unspecified; J21.0 Acute bronchiolitis due to respiratory syncytial virus; E87.3 Alkalosis; N18.30 Chronic kidney disease, stage 3 unspecified; B33.8 Other specified viral diseases; I48.91 Unspecified atrial fibrillation; D50.9 Iron deficiency anemia, unspecified; E78.5 Hyperlipidemia, unspecified; E66.9 Obesity, unspecified; Z68.35 Body mass index [BMI] 35.0-35.9, adult
CPT/HCPCS: 0241U-QW; 36415; 36600; 71045-TC-FY; 71250-TC; 80048; 80053; 80061; 80076; 81003; 82570; 82803; 82962; 83036; 83735; 83880; 84100; 84300; 84484; 85025; 85027; 87070; 87081; 87186; 87205; 93005; 93010; 93306-TC; 93971-TC; 94640; 94761; 97116-GP; 97161-GP; 99285-25

== ENCOUNTER 2023-11-10 20:26 | Inpatient (IN) | payer OTHER ==
[2023-11-10] MEDS: SODIUM CHLORIDE 0.9% 500 ML INFUS.BAG IV ONE (22:40)
[2023-11-10 22:42] LABS: HEMATOCRIT 30.1 % (32.4-45.2); HEMOGLOBIN 9.5 GM/dL (10.7-15.3); MCH 25.8 pg (25.7-33.7); MCHC 31.5 g/dl (32.0-36.0); MEAN PLT VOLUME 8.7 fl (7.5-11.1); PLATELET COUNT 240 10^3/uL (134-434); RBC 3.67 M/mm3 (3.60-5.2); RDW 19.1 % (11.6-15.6); WHITE BLOOD COUNT 12.4 K/mm3 (4.0-10.0)
[2023-11-10 23:04] LABS: CALCIUM 13.1 mg/dL (8.5-10.1)
[2023-11-10 23:05] LABS: ALBUMIN 2.3 g/dl (3.4-5.0); BLOOD UREA NITROGEN 34.5 mg/dL (7-18)
[2023-11-10 23:08] LABS: CREATININE 2.9 mg/dL (0.55-1.3)
[2023-11-10 23:10] LABS: BILIRUBIN,TOTAL 0.8 mg/dL (0.2-1); TOT PROT 6.1 g/dl (6.4-8.2)
[2023-11-11] MEDS: SODIUM CHLORIDE 0.9% 500 ML INFUS.BAG IV ONE (00:20)
[2023-11-11] MEDS ORDERED: ACETAMINOPHEN INJECTION 100 ML IVPB ONE ×2 (00:23→10:58)
[2023-11-11 00:50] LABS: PHOSPHOROUS 2.6 mg/dL (2.5-4.9)
[2023-11-11] MEDS: ACETAMINOPHEN 1000 MG/100 ML BAG IVPB ONE (00:55)
[2023-11-11] MEDS ORDERED: ALBUTEROL SO4 HFA INHALER IH PRN (04:35)
[2023-11-11] MEDS: SODIUM CHLORIDE 1,000 ML IV SCH (05:49)
[2023-11-11 07:33] LABS: BASO % 0.5 % (0-2.0); HEMATOCRIT 27.9 % (32.4-45.2); HEMOGLOBIN 8.9 GM/dL (10.7-15.3); LYMPH % 35.9 % (8-40); MCH 26.3 pg (25.7-33.7); MCHC 31.8 g/dl (32.0-36.0); MEAN CELL VOLUME 82.8 fl (80-96); MONO % 6.4 % (3.8-10.2); NEUT % 56.2 % (42.8-82.8); PLATELET COUNT 251 10^3/uL (134-434); RBC 3.37 M/mm3 (3.60-5.2); RDW 18.5 % (11.6-15.6); WHITE BLOOD COUNT 9.4 K/mm3 (4.0-10.0)
[2023-11-11 07:52] LABS: POTASSIUM 4.1 mmol/L (3.5-5.1)
[2023-11-11 07:59] LABS: ALBUMIN 2.1 g/dl (3.4-5.0); BLOOD UREA NITROGEN 31.8 mg/dL (7-18); CALCIUM 11.7 mg/dL (8.5-10.1); MAGNESIUM 2.4 mg/dL (1.8-2.4)
[2023-11-11 08:02] LABS: CREATININE 2.7 mg/dL (0.55-1.3)
[2023-11-11 08:04] LABS: BILIRUBIN,TOTAL 0.7 mg/dL (0.2-1); TOT PROT 5.4 g/dl (6.4-8.2)
[2023-11-11] MEDS ORDERED: ACETAMINOPHEN 1000 MG/100 ML BAG IVPB PRN (08:15)
[2023-11-11] MEDS: PANTOPRAZOLE 40 MG TABLET PO SCH (08:32)
[2023-11-11] MEDS ORDERED: PATIENT'S OWN MEDICATION (NON-FORMULARY) (Brimonidine Tartrate/Timolol [Combigan 0.2%-0.5% OU SCH (10:00)
[2023-11-11] MEDS: TIMOLOL 0.5% OPHTHALMIC SOL 5 ML BOTTLE OU SCH (10:03)
[2023-11-11] MEDS: lamoTRIgine 25 MG TABLET PO SCH (10:03)
[2023-11-11] MEDS: BRIMONIDINE TARTRATE 0.2% OPHTHALMIC 5 ML BOTTLE OU SCH (10:03)
[2023-11-11] MEDS: BUDESONIDE/FORMOTEROL FUMARATE 160-4.5 MCG (10.3 GM INHALER) IH SCH (10:03)
[2023-11-11] MEDS: APIXABAN 5 MG TABLET PO SCH (10:03)
[2023-11-11 10:25] LABS: EPI CELLS 6 /uL (0-25.1); HYALINE CASTS 0 /uL (0-3.1); PH,URINE 5.5 (5.0-8.0); URINE APPEARANCE TURBID; URINE BACTERIA 3442 /uL (0-1359); URINE BILIRUBIN NEGATIVE (NEGATIVE); URINE COLOR YELLOW; URINE GLUCOSE (UA) NEGATIVE (NEGATIVE); URINE KETONE NEGATIVE (NEGATIVE); URINE LEUK ESTERASE 3+ (NEGATIVE); URINE NITRITE NEGATIVE (NEGATIVE); URINE PROTEIN 1+ (NEGATIVE); URINE RBC 89 /uL (0-23.9); URINE UROBILINOGEN 0.2 mg/dL (0.2-1.0); URINE WBC 7513 /uL (0-25.8)
[2023-11-11] MEDS ORDERED: CEFTRIAXONE 1 GM/50 ML BAG ONE (13:05)
[2023-11-11] MEDS: CEFTRIAXONE 1 GM in DEXTROSE 5%-WATER - 50 ML IVPB SCH (13:17)
[2023-11-11 19:27] VITALS: BMI 35.4
[2023-11-11] MEDS: APIXABAN 2.5 MG TABLET PO SCH (21:57)
[2023-11-11] MEDS: PATIENT'S OWN MEDICATION (NON-FORMULARY) (Brimonidine Tartrate/Timolol [Combigan 0.2%-0.5% OU SCH (21:58)
[2023-11-11] MEDS: LATANOPROST 0.005% OU SCH (21:58)
[2023-11-11] MEDS: [UNRECOGNIZED DRUG - OTHER] OU SCH (21:58)
[2023-11-11] MEDS: ATORVASTATIN CA 10 MG TABLET (FP) PO SCH (21:58)
[2023-11-12] MEDS: ALLOPURINOL 100 MG TABLET (FP) PO SCH (10:31)
[2023-11-12 12:11] LABS: BASO % 0.6 % (0-2.0); EOS % 1.8 % (0-4.5); HEMATOCRIT 30.2 % (32.4-45.2); HEMOGLOBIN 9.2 GM/dL (10.7-15.3); LYMPH % 29.7 % (8-40); MCH 25.4 pg (25.7-33.7); MCHC 30.5 g/dl (32.0-36.0); MEAN CELL VOLUME 83.2 fl (80-96); MEAN PLT VOLUME 9.1 fl (7.5-11.1); MONO % 6.2 % (3.8-10.2); NEUT % 61.7 % (42.8-82.8); PLATELET COUNT 243 10^3/uL (134-434); RBC 3.62 M/mm3 (3.60-5.2); RDW 18.7 % (11.6-15.6); WHITE BLOOD COUNT 11.6 K/mm3 (4.0-10.0)
[2023-11-12 12:28] LABS: POTASSIUM 3.7 mmol/L (3.5-5.1)
[2023-11-12 12:30] LABS: CALCIUM 11.7 mg/dL (8.5-10.1)
[2023-11-12 12:31] LABS: ALBUMIN 2.3 g/dl (3.4-5.0); BLOOD UREA NITROGEN 31.2 mg/dL (7-18); MAGNESIUM 2.2 mg/dL (1.8-2.4)
[2023-11-12 12:33] LABS: PHOSPHOROUS 2.5 mg/dL (2.5-4.9)
[2023-11-12 12:34] LABS: CREATININE 2.5 mg/dL (0.55-1.3)
[2023-11-12 12:36] LABS: BILIRUBIN,TOTAL 0.6 mg/dL (0.2-1); TOT PROT 5.9 g/dl (6.4-8.2)
[2023-11-12] MEDS: SODIUM CHLORIDE 1,000 ML IV SCH ×2 (17:03→17:05)
[2023-11-12] MEDS: CALCITONIN - SALMON SYNTHETIC 400 UNIT/2 ML VIAL SQ SCH (18:23)
[2023-11-12] MEDS: ZOLEDRONIC ACID 4 MG in SODIUM CHLORIDE 100 ML IVPB ONE (18:24)
[2023-11-12] MEDS: ACETAMINOPHEN 325 MG TABLET (FP) PO ONE (21:11)
[2023-11-12] MEDS: ONDANSETRON 4 MG/2 ML VIAL IVPUSH ONE (22:12)
[2023-11-13] MEDS ORDERED: TRIMETHOBENZAMIDE HCL 200MG/2ML INJ IM PRN (07:34)
[2023-11-13] MEDS: ACETAMINOPHEN 1000 MG/100 ML BAG IVPB PRN (09:03)
[2023-11-13 09:43] LABS: BASO % 0.6 % (0-2.0); EOS % 0.5 % (0-4.5); HEMOGLOBIN 8.7 GM/dL (10.7-15.3); LYMPH % 25.9 % (8-40); MCH 25.8 pg (25.7-33.7); MCHC 31.1 g/dl (32.0-36.0); MEAN CELL VOLUME 82.9 fl (80-96); MEAN PLT VOLUME 8.9 fl (7.5-11.1); MONO % 5.2 % (3.8-10.2); NEUT % 67.8 % (42.8-82.8); PLATELET COUNT 235 10^3/uL (134-434); RBC 3.38 M/mm3 (3.60-5.2); RDW 18.9 % (11.6-15.6); WHITE BLOOD COUNT 11.5 K/mm3 (4.0-10.0)
[2023-11-13 10:01] LABS: POTASSIUM 3.9 mmol/L (3.5-5.1)
[2023-11-13 10:06] LABS: ALBUMIN 2.2 g/dl (3.4-5.0); BLOOD UREA NITROGEN 27.5 mg/dL (7-18); CALCIUM 11.3 mg/dL (8.5-10.1); MAGNESIUM 1.8 mg/dL (1.8-2.4)
[2023-11-13 10:09] LABS: PHOSPHOROUS 2.3 mg/dL (2.5-4.9)
[2023-11-13 10:11] LABS: BILIRUBIN,TOTAL 0.5 mg/dL (0.2-1); TOT PROT 5.9 g/dl (6.4-8.2)
[2023-11-13] MEDS: PANTOPRAZOLE SODIUM 40 MG VIAL IVPUSH SCH (10:15)
[2023-11-13] MEDS: LIDOCAINE 4% PATCH TP SCH (10:16)
[2023-11-13] MEDS ORDERED: PANTOPRAZOLE SODIUM 80 MG in SODIUM CHLORIDE 100 ML IVPB SCH (13:00)
[2023-11-13 13:40] LABS: HEMATOCRIT 27.7 % (32.4-45.2); HEMOGLOBIN 8.7 GM/dL (10.7-15.3); MCH 25.6 pg (25.7-33.7); MCHC 31.4 g/dl (32.0-36.0); MEAN CELL VOLUME 81.5 fl (80-96); MEAN PLT VOLUME 8.8 fl (7.5-11.1); PLATELET COUNT 232 10^3/uL (134-434); RDW 19.4 % (11.6-15.6); WHITE BLOOD COUNT 12.3 K/mm3 (4.0-10.0)
[2023-11-13 13:49] LABS: INR 1.76 (0.83-1.09); PROTHROMBIN TIME (PATIENT) 20.3 SEC (9.7-13.0)
[2023-11-13 13:52] LABS: ACTIVATED PTT 32.8 SECONDS (25.2-36.5)
[2023-11-13] MEDS: PIPERACILLIN/TAZOB 3.375 GM 3.375 GM in DEXTROSE 5%-WATER - 50 ML IVPB SCH ×2 (14:29→14:37)
[2023-11-13] MEDS: PANTOPRAZOLE SODIUM 160 MG in SODIUM CHLORIDE 290 ML IVPB SCH (15:45)
[2023-11-13] MEDS ORDERED: ACETAMINOPHEN 1000 MG/100 ML BAG IVPB PRN (17:15)
[2023-11-13] MEDS ORDERED: ALBUTEROL SO4 HFA INHALER IH PRN (17:15)
[2023-11-13] MEDS: SODIUM CHLORIDE 1,000 ML IV SCH (18:52)
[2023-11-13] MEDS: PIPERACILLIN/TAZOB 2.25 GM 2.25 GM in DEXTROSE 5%-WATER - 50 ML IVPB SCH (18:53)
[2023-11-13] MEDS: ATORVASTATIN CA 10 MG TABLET (FP) PO SCH (21:49)
[2023-11-13] MEDS: BUDESONIDE/FORMOTEROL FUMARATE 160-4.5 MCG (10.3 GM INHALER) IH SCH (21:51)
[2023-11-13] MEDS: PT OWN MED (PYXIS) OU SCH (21:53)
[2023-11-13] MEDS: LIDOCAINE PATCH REMOVAL MC SCH (21:54)
[2023-11-13] MEDS ORDERED: CHLORHEXIDINE GLUCONATE 4% CLEANSER FOR DECOLONIZATION TP SCH ×2 (22:00)
[2023-11-13] MEDS ORDERED: MUPIROCIN 2% TOPICAL OINTMENT FOR DECOLONIZATION NS SCH (22:00)
[2023-11-13] MEDS ORDERED: LIDOCAINE PATCH REMOVAL MC SCH ×2 (22:00)
[2023-11-13] MEDS: TIMOLOL 0.5% OPHTHALMIC SOL 5 ML BOTTLE OU SCH (23:03)
[2023-11-13] MEDS: BRIMONIDINE TARTRATE 0.2% OPHTHALMIC 5 ML BOTTLE OU SCH (23:03)
[2023-11-13] MEDS: MUPIROCIN 2% TOPICAL OINTMENT FOR DECOLONIZATION NS SCH (23:08)
[2023-11-13] MEDS: PATIENT'S OWN MEDICATION (NON-FORMULARY) (Brimonidine Tartrate/Timolol [Combigan 0.2%-0.5% OU SCH (23:08)
[2023-11-14 08:00] LABS: BASO % 0.6 % (0-2.0); EOS % 0.2 % (0-4.5); HEMATOCRIT 24.3 % (32.4-45.2); HEMOGLOBIN 7.6 GM/dL (10.7-15.3); LYMPH % 26.8 % (8-40); MCH 25.8 pg (25.7-33.7); MCHC 31.2 g/dl (32.0-36.0); MEAN CELL VOLUME 82.7 fl (80-96); MEAN PLT VOLUME 8.7 fl (7.5-11.1); MONO % 5.7 % (3.8-10.2); NEUT % 66.7 % (42.8-82.8); PLATELET COUNT 217 10^3/uL (134-434); RBC 2.94 M/mm3 (3.60-5.2); RDW 18.9 % (11.6-15.6); WHITE BLOOD COUNT 11.1 K/mm3 (4.0-10.0)
[2023-11-14 08:20] LABS: CHLORIDE 108 mmol/L (98-107); POTASSIUM 3.7 mmol/L (3.5-5.1); SODIUM 141 mmol/L (136-145)
[2023-11-14 08:27] LABS: ANION GAP 5 mmol/L (4-13); BLOOD UREA NITROGEN 24.6 mg/dL (7-18); CO2 28 mmol/L (21-32); MAGNESIUM 1.8 mg/dL (1.8-2.4)
[2023-11-14 08:28] LABS: GLUCOSE,RANDOM 82 mg/dL (74-106)
[2023-11-14 08:30] LABS: CREATININE 1.8 mg/dL (0.55-1.3); PHOSPHOROUS 2.2 mg/dL (2.5-4.9); SGOT/AST 13 U/L (15-37); SGPT/ALT < 6 U/L (13-61)
[2023-11-14 08:32] LABS: BILIRUBIN,TOTAL 0.5 mg/dL (0.2-1); LDH 182 U/L (84-246); TOT PROT 5.1 g/dl (6.4-8.2)
[2023-11-14 08:36] LABS: ALK PHOS 175 U/L (45-117)
[2023-11-14] MEDS: LIDOCAINE 4% PATCH TP SCH (11:58)
[2023-11-14] MEDS: ALLOPURINOL 100 MG TABLET (FP) PO SCH (11:58)
[2023-11-14] MEDS: PANTOPRAZOLE SODIUM 160 MG in SODIUM CHLORIDE 290 ML IVPB SCH (11:58)
[2023-11-14] MEDS: lamoTRIgine 25 MG TABLET PO SCH (11:58)
[2023-11-14] MEDS: ACETAMINOPHEN 1000 MG/100 ML BAG IVPB PRN (11:59)
[2023-11-14] MEDS: traMADol HCL 50 MG TABLET PO PRN (16:30)
[2023-11-15 06:30] LABS: EOS % 0.9 % (0-4.5); HEMATOCRIT 31.9 % (32.4-45.2); HEMOGLOBIN 10.3 GM/dL (10.7-15.3); LYMPH % 25.2 % (8-40); MCH 26.7 pg (25.7-33.7); MCHC 32.5 g/dl (32.0-36.0); MEAN CELL VOLUME 82.1 fl (80-96); MEAN PLT VOLUME 7.9 fl (7.5-11.1); MONO % 7.3 % (3.8-10.2); NEUT % 65.6 % (42.8-82.8); PLATELET COUNT 199 10^3/uL (134-434); RBC 3.88 M/mm3 (3.60-5.2); RDW 17.6 % (11.6-15.6); WHITE BLOOD COUNT 10.4 K/mm3 (4.0-10.0)
[2023-11-15 06:50] LABS: POTASSIUM 3.7 mmol/L (3.5-5.1)
[2023-11-15 06:53] LABS: BLOOD UREA NITROGEN 23.8 mg/dL (7-18); CALCIUM 9.6 mg/dL (8.5-10.1); MAGNESIUM 1.5 mg/dL (1.8-2.4)
[2023-11-15 06:56] LABS: CREATININE 1.7 mg/dL (0.55-1.3)
[2023-11-15 06:58] LABS: BILIRUBIN,TOTAL 1.3 mg/dL (0.2-1); TOT PROT 5.3 g/dl (6.4-8.2)
[2023-11-15] MEDS: MAGNESIUM SULFATE IN WATER 2 GM/50 ML IVPB IVPB ONE (08:16)
[2023-11-15] MEDS: SODIUM CHLORIDE 1,000 ML IV SCH (10:43)
[2023-11-16 08:29] LABS: BASO % 0.5 % (0-2.0); EOS % 1.8 % (0-4.5); HEMATOCRIT 33.6 % (32.4-45.2); HEMOGLOBIN 10.6 GM/dL (10.7-15.3); LYMPH % 27.6 % (8-40); MCH 26.4 pg (25.7-33.7); MCHC 31.7 g/dl (32.0-36.0); MEAN CELL VOLUME 83.2 fl (80-96); MEAN PLT VOLUME 8.7 fl (7.5-11.1); MONO % 7.6 % (3.8-10.2); NEUT % 62.5 % (42.8-82.8); PLATELET COUNT 198 10^3/uL (134-434); RBC 4.04 M/mm3 (3.60-5.2); RDW 18.1 % (11.6-15.6); WHITE BLOOD COUNT 11.1 K/mm3 (4.0-10.0)
[2023-11-16 08:47] LABS: POTASSIUM 3.4 mmol/L (3.5-5.1)
[2023-11-16 08:49] LABS: CALCIUM 9.3 mg/dL (8.5-10.1)
[2023-11-16 08:50] LABS: ALBUMIN 1.9 g/dl (3.4-5.0); BLOOD UREA NITROGEN 20.3 mg/dL (7-18); MAGNESIUM 1.8 mg/dL (1.8-2.4)
[2023-11-16 08:53] LABS: CREATININE 1.5 mg/dL (0.55-1.3)
[2023-11-16 08:54] LABS: TOT PROT 5.2 g/dl (6.4-8.2)
[2023-11-16 08:55] LABS: BILIRUBIN,TOTAL 0.8 mg/dL (0.2-1)
[2023-11-16] MEDS: KCL 10 MEQ IVPB 10 MEQ/100 ML INFUS.BAG IVPB SCH (14:00)
[2023-11-16] MEDS: D5-1/2NS+20 MEQ KCL - 20 MEQ/1,000 ML INFUS.BAG IV SCH (16:27)
[2023-11-16 17:08] LABS: FREE KAPPA,SERUM 23.4 mg/L (3.3-19.4)
[2023-11-16] MEDS: POTASSIUM CHLORIDE ORAL LIQUID 20 MEQ/15 ML PO ONE (17:12)
[2023-11-16] MEDS: METOPROLOL TARTRATE 25 MG TABLET (FP) PO ONE (20:15)
[2023-11-16] MEDS: APIXABAN 2.5 MG TABLET PO SCH (21:22)
[2023-11-17 08:23] LABS: POTASSIUM 3.4 mmol/L (3.5-5.1)
[2023-11-17 08:26] LABS: BASO % 0.3 % (0-2.0); EOS % 2.3 % (0-4.5); HEMATOCRIT 30.6 % (32.4-45.2); HEMOGLOBIN 10.1 GM/dL (10.7-15.3); MCH 27.3 pg (25.7-33.7); MEAN CELL VOLUME 82.7 fl (80-96); MEAN PLT VOLUME 8.6 fl (7.5-11.1); MONO % 8.8 % (3.8-10.2); NEUT % 59.6 % (42.8-82.8); PLATELET COUNT 171 10^3/uL (134-434); RDW 18.3 % (11.6-15.6); WHITE BLOOD COUNT 10.2 K/mm3 (4.0-10.0)
[2023-11-17 08:35] LABS: CALCIUM 8.6 mg/dL (8.5-10.1)
[2023-11-17 08:36] LABS: ALBUMIN 1.8 g/dl (3.4-5.0); BLOOD UREA NITROGEN 20.6 mg/dL (7-18); CREATININE 1.6 mg/dL (0.55-1.3)
[2023-11-17 08:38] LABS: BILIRUBIN,TOTAL 0.6 mg/dL (0.2-1); TOT PROT 4.8 g/dl (6.4-8.2)
[2023-11-17] MEDS: METOPROLOL TARTRATE 25 MG TABLET (FP) PO SCH (09:09)
[2023-11-17] MEDS: POTASSIUM CHLORIDE ORAL LIQUID 20 MEQ/15 ML PO ONE (12:31)
[2023-11-18 06:52] LABS: BASO % 0.6 % (0-2.0); EOS % 2.3 % (0-4.5); HEMATOCRIT 32.7 % (32.4-45.2); HEMOGLOBIN 10.7 GM/dL (10.7-15.3); LYMPH % 35.2 % (8-40); MCH 27.2 pg (25.7-33.7); MCHC 32.9 g/dl (32.0-36.0); MEAN CELL VOLUME 82.7 fl (80-96); MEAN PLT VOLUME 8.8 fl (7.5-11.1); MONO % 7.8 % (3.8-10.2); NEUT % 54.1 % (42.8-82.8); PLATELET COUNT 183 10^3/uL (134-434); RBC 3.95 M/mm3 (3.60-5.2); RDW 18.2 % (11.6-15.6); WHITE BLOOD COUNT 10.1 K/mm3 (4.0-10.0)
[2023-11-18 07:07] LABS: POTASSIUM 4.2 mmol/L (3.5-5.1)
[2023-11-18 07:26] LABS: ALBUMIN 1.8 g/dl (3.4-5.0); CALCIUM 8.3 mg/dL (8.5-10.1)
[2023-11-18 07:29] LABS: MAGNESIUM 1.8 mg/dL (1.8-2.4)
[2023-11-18 07:30] LABS: CREATININE 1.5 mg/dL (0.55-1.3)
[2023-11-18 07:31] LABS: BILIRUBIN,TOTAL 1.1 mg/dL (0.2-1)
[2023-11-18 15:07] LABS: ALBUMIN % 46.1 % (.); TOTAL PROTEIN, URINE 39.8 mg/dL (Not Estab.)
[2023-11-19] MEDS: oxyCODONE HCL 5 MG TABLET PO PRN (10:48)
[2023-11-19] MEDS: ACETAMINOPHEN 325 MG TABLET (FP) PO PRN (10:48)
[2023-11-19] MEDS: SIMETHICONE 80 MG TAB.CHEW (FP) PO SCH (13:53)
[2023-11-19] MEDS ORDERED: LOPERAMIDE HCL 2 MG CAPSULE PO PRN ×2 (16:58→17:15)
[2023-11-20 07:49] LABS: BASO % 0.5 % (0-2.0); EOS % 2.5 % (0-4.5); HEMATOCRIT 38.3 % (32.4-45.2); HEMOGLOBIN 12.2 GM/dL (10.7-15.3); LYMPH % 32.7 % (8-40); MCH 26.6 pg (25.7-33.7); MCHC 31.8 g/dl (32.0-36.0); MEAN CELL VOLUME 83.5 fl (80-96); MEAN PLT VOLUME 9.2 fl (7.5-11.1); MONO % 6.3 % (3.8-10.2); PLATELET COUNT 203 10^3/uL (134-434); RBC 4.59 M/mm3 (3.60-5.2); RDW 18.8 % (11.6-15.6); WHITE BLOOD COUNT 11.9 K/mm3 (4.0-10.0)
[2023-11-20 07:53] LABS: POTASSIUM 4.6 mmol/L (3.5-5.1)
[2023-11-20 07:58] LABS: CALCIUM 8.6 mg/dL (8.5-10.1)
[2023-11-20 07:59] LABS: MAGNESIUM 1.5 mg/dL (1.8-2.4)
[2023-11-20 08:00] LABS: CREATININE 1.4 mg/dL (0.55-1.3)
[2023-11-20 08:02] LABS: TOT PROT 5.7 g/dl (6.4-8.2)
[2023-11-20 08:03] LABS: BILIRUBIN,TOTAL 0.7 mg/dL (0.2-1)
[2023-11-20] MEDS: ONDANSETRON 4 MG/2 ML VIAL IVPUSH PRN (18:10)
[2023-11-21 06:47] LABS: BASO % 1.3 % (0-2.0); EOS % 1.7 % (0-4.5); HEMATOCRIT 34.3 % (32.4-45.2); HEMOGLOBIN 11.1 GM/dL (10.7-15.3); LYMPH % 33.6 % (8-40); MCH 26.7 pg (25.7-33.7); MCHC 32.3 g/dl (32.0-36.0); MEAN CELL VOLUME 82.6 fl (80-96); NEUT % 55.4 % (42.8-82.8); PLATELET COUNT 194 10^3/uL (134-434); RBC 4.16 M/mm3 (3.60-5.2); RDW 18.4 % (11.6-15.6); WHITE BLOOD COUNT 11.8 K/mm3 (4.0-10.0)
[2023-11-21 07:05] LABS: POTASSIUM 4.5 mmol/L (3.5-5.1)
[2023-11-21 07:11] LABS: ALBUMIN 1.9 g/dl (3.4-5.0); BLOOD UREA NITROGEN 14.8 mg/dL (7-18); CALCIUM 7.5 mg/dL (8.5-10.1); MAGNESIUM 1.3 mg/dL (1.8-2.4)
[2023-11-21 07:14] LABS: CREATININE 1.5 mg/dL (0.55-1.3)
[2023-11-21 07:15] LABS: BILIRUBIN,TOTAL 0.6 mg/dL (0.2-1)
[2023-11-21] MEDS: MAGNESIUM SULFATE IN WATER 2 GM/50 ML IVPB IVPB ONE (11:08)
[2023-11-21] MEDS: FUROSEMIDE 40 MG/4 ML INJECTABLE VIAL IVPUSH ONE ×2 (11:09→16:53)
[2023-11-21] MEDS: BUMETANIDE INJECTION 1 MG/4 ML VIAL IVPUSH ONE (22:28)
[2023-11-22 07:23] LABS: BASO % 0.9 % (0-2.0); EOS % 1.2 % (0-4.5); HEMATOCRIT 32.4 % (32.4-45.2); HEMOGLOBIN 10.6 GM/dL (10.7-15.3); LYMPH % 31.2 % (8-40); MCH 27.1 pg (25.7-33.7); MCHC 32.7 g/dl (32.0-36.0); MEAN CELL VOLUME 82.8 fl (80-96); MEAN PLT VOLUME 8.9 fl (7.5-11.1); MONO % 6.9 % (3.8-10.2); NEUT % 59.8 % (42.8-82.8); PLATELET COUNT 192 10^3/uL (134-434); RBC 3.91 M/mm3 (3.60-5.2); RDW 18.9 % (11.6-15.6); WHITE BLOOD COUNT 11.6 K/mm3 (4.0-10.0)
[2023-11-22 07:39] LABS: POTASSIUM 4.6 mmol/L (3.5-5.1)
[2023-11-22 07:41] LABS: ALBUMIN 1.9 g/dl (3.4-5.0)
[2023-11-22 07:42] LABS: BLOOD UREA NITROGEN 15.9 mg/dL (7-18); MAGNESIUM 1.6 mg/dL (1.8-2.4)
[2023-11-22 07:45] LABS: CREATININE 1.7 mg/dL (0.55-1.3)
[2023-11-22 07:46] LABS: BILIRUBIN,TOTAL 0.6 mg/dL (0.2-1); TOT PROT 5.1 g/dl (6.4-8.2)
[2023-11-22] MEDS ORDERED: SIMETHICONE 80 MG TAB.CHEW (FP) PO PRN (07:52)
[2023-11-22 10:05] VITALS: RESP 18
[2023-11-22] MEDS: POVIDONE-IODINE 10% SOLN 118 ML BOTTLE TP ONE (12:37)
[2023-11-22] MEDS: MAGNESIUM SULF 50% (8.12 MEQ/2 ML-1 GM VIAL) IVPB ONE (16:19)
[2023-11-22] MEDS: MAGNESIUM SULFATE IN WATER 2 GM/50 ML IVPB IVPB ONE (17:50)
[2023-11-23 15:05] VITALS: BP 120/57; PULSE 123; TEMP 97.4
== END 2023-11-23 18:41 | disposition home health service (06) | DRG 640 ==
LOC: JER 20:26 → JERBED 23:16 → J7W 11-11 15:48 → J4S 11-13 17:10
PROVIDERS: ADMIT Internal Medicine; ATTEND Nurse Practitioner Acute Care
PROC: 30233N1 Transfusion of Nonautologous Red Blood Cells into Peripheral Vein, Percutaneous Approach (ICD-10-PCS; 2023-11-14)
PROC: 0DB68ZX Excision of Stomach, Via Natural or Artificial Opening Endoscopic, Diagnostic (ICD-10-PCS; 2023-11-16)
PROC: 0DB98ZX Excision of Duodenum, Via Natural or Artificial Opening Endoscopic, Diagnostic (ICD-10-PCS; principal; 2023-11-16 12:45)
DX: E83.52 Hypercalcemia (principal); R53.2 Functional quadriplegia; C90.00 Multiple myeloma not having achieved remission; I50.22 Chronic systolic (congestive) heart failure; I13.0 Hypertensive heart and chronic kidney disease with heart failure and stage 1 through stage 4 chronic kidney disease, or unspecified chronic kidney disease; N17.9 Acute kidney failure, unspecified; E87.20 Acidosis, unspecified; R44.3 Hallucinations, unspecified; J96.10 Chronic respiratory failure, unspecified whether with hypoxia or hypercapnia; N39.0 Urinary tract infection, site not specified; K92.0 Hematemesis; K92.2 Gastrointestinal hemorrhage, unspecified; X58.XXXA Exposure to other specified factors, initial encounter; Y93.9 Activity, unspecified; Y92.9 Unspecified place or not applicable; J45.909 Unspecified asthma, uncomplicated; D64.9 Anemia, unspecified; M81.0 Age-related osteoporosis without current pathological fracture; I48.91 Unspecified atrial fibrillation; E78.5 Hyperlipidemia, unspecified; T50.3X5A Adverse effect of electrolytic, caloric and water-balance agents, initial encounter; Z74.01 Bed confinement status; N18.30 Chronic kidney disease, stage 3 unspecified; K29.50 Unspecified chronic gastritis without bleeding; K44.9 Diaphragmatic hernia without obstruction or gangrene; R19.7 Diarrhea, unspecified; B96.20 Unspecified Escherichia coli [E. coli] as the cause of diseases classified elsewhere; E66.9 Obesity, unspecified; Z68.35 Body mass index [BMI] 35.0-35.9, adult
CPT/HCPCS: 36415; 36430; 71045-TC-FY; 73610-TC-LT-FY; 73630-TC-LT; 74018-TC-FY; 74176-TC; 76775-TC; 77074-TC-FY; 80053; 81003; 82232; 82272; 82550; 82977; 83615; 83735; 83883; 83970; 84100; 84155; 84156; 84165; 84166; 84550; 85025; 85027; 85610; 85730; 86850; 86900; 86901; 86922; 87040; 87070; 87086; 87186; 87205; 87324; 87449; 87899; 88305-TC; 93005; 93010; 97161-GP; 99285-25; E1399; J0131; J3489; P9038; P9058

== ENCOUNTER 2023-12-03 18:52 | Inpatient (IN) | payer OTHER ==
[2023-12-03 20:04] LABS: BASO % 0.7 % (0-2.0); EOS % 0.9 % (0-4.5); HEMATOCRIT 31.4 % (32.4-45.2); HEMOGLOBIN 10.2 GM/dL (10.7-15.3); LYMPH % 23.8 % (8-40); MCH 26.7 pg (25.7-33.7); MCHC 32.4 g/dl (32.0-36.0); MEAN CELL VOLUME 82.3 fl (80-96); MEAN PLT VOLUME 8.2 fl (7.5-11.1); MONO % 6.9 % (3.8-10.2); NEUT % 67.7 % (42.8-82.8); PLATELET COUNT 296 10^3/uL (134-434); RBC 3.81 M/mm3 (3.60-5.2); RDW 18.6 % (11.6-15.6); WHITE BLOOD COUNT 11.1 K/mm3 (4.0-10.0)
[2023-12-03 20:05] LABS: VENOUS BASE EXCESS -3.6 mmol/L (-2-2); VENOUS O2 SATURATION 34.8 % (70-80); VENOUS PCO2 50.4 mmHg (38-52); VENOUS PH 7.283 (7.310-7.410)
[2023-12-03 20:20] LABS: EPI CELLS 4 /uL (0-25.1); HYALINE CASTS 1 /uL (0-3.1); URINE APPEARANCE TURBID; URINE BACTERIA 37 /uL (0-1359); URINE BILIRUBIN NEGATIVE (NEGATIVE); URINE COLOR YELLOW; URINE GLUCOSE (UA) NEGATIVE (NEGATIVE); URINE KETONE NEGATIVE (NEGATIVE); URINE LEUK ESTERASE 3+ (NEGATIVE); URINE NITRITE NEGATIVE (NEGATIVE); URINE PROTEIN NEGATIVE (NEGATIVE); URINE RBC 76 /uL (0-23.9); URINE UROBILINOGEN 0.2 mg/dL (0.2-1.0); URINE WBC 3090 /uL (0-25.8)
[2023-12-03] MEDS ORDERED: ACETAMINOPHEN INJECTION 100 ML IVPB ONE (20:22)
[2023-12-03 20:23] LABS: POTASSIUM 5.2 mmol/L (3.5-5.1)
[2023-12-03 20:26] LABS: ALBUMIN 2.1 g/dl (3.4-5.0)
[2023-12-03] MEDS: ACETAMINOPHEN 1000 MG/100 ML BAG IVPB ONE (20:27)
[2023-12-03 20:28] LABS: CREATININE 2.4 mg/dL (0.55-1.3)
[2023-12-03 20:30] LABS: BILIRUBIN,TOTAL 0.9 mg/dL (0.2-1); CALCIUM 9.6 mg/dL (8.5-10.1)
[2023-12-03 20:33] LABS: N-TERMINAL BNP 3578.2 pg/ml (5-450)
[2023-12-03] MEDS ORDERED: VANCOMYCIN 1 GRAM (PRE-DOCKED) 1,000 MG/250 ML BAG IVPB ONE (21:38)
[2023-12-03] MEDS ORDERED: CEFEPIME 1 GM/100 ML BAG IVPB ONE (21:38)
[2023-12-03 22:10] LABS: ERYTHROCYTE SEDIMENTATION RATE 23 mm/hr (0-30)
[2023-12-03] MEDS: CEFEPIME HCL 1 GM VIAL (RESTRICTED TO ID) IVPB ONE (22:46)
[2023-12-03] MEDS: VANCOMYCIN 1,000 MG in DEXTROSE 5%-WATER - 250 ML IVPB ONE (23:25)
[2023-12-04] MEDS ORDERED: ALBUTEROL SO4 HFA INHALER IH PRN ×2 (00:56→15:34)
[2023-12-04] MEDS ORDERED: oxyCODONE HCL 5 MG TABLET PO PRN (00:56)
[2023-12-04] MEDS ORDERED: ACETAMINOPHEN 325 MG TABLET (FP) PO PRN (00:56)
[2023-12-04] MEDS ORDERED: ATORVASTATIN CA 10 MG TABLET (FP) ONE (01:27)
[2023-12-04] MEDS: METOPROLOL TARTRATE 25 MG TABLET (FP) PO ONE (01:36)
[2023-12-04] MEDS: ATORVASTATIN CA 10 MG TABLET (FP) PO ONE (01:36)
[2023-12-04] MEDS: APIXABAN 2.5 MG TABLET PO ONE (01:36)
[2023-12-04 06:30] VITALS: BMI 37.5
[2023-12-04] MEDS: PANTOPRAZOLE 40 MG TABLET PO SCH (06:45)
[2023-12-04 09:47] LABS: BASO % 0.4 % (0-2.0); EOS % 0.2 % (0-4.5); HEMATOCRIT 30.5 % (32.4-45.2); HEMOGLOBIN 9.5 GM/dL (10.7-15.3); LYMPH % 21.9 % (8-40); MCH 25.9 pg (25.7-33.7); MEAN CELL VOLUME 83.3 fl (80-96); MONO % 7.3 % (3.8-10.2); NEUT % 70.2 % (42.8-82.8); PLATELET COUNT 282 10^3/uL (134-434); RBC 3.66 M/mm3 (3.60-5.2); RDW 18.4 % (11.6-15.6); RETICULOCYTES 1.06 % (0.5-1.5); WHITE BLOOD COUNT 13.5 K/mm3 (4.0-10.0)
[2023-12-04 10:00] LABS: POTASSIUM 4.8 mmol/L (3.5-5.1)
[2023-12-04] MEDS ORDERED: PATIENT'S OWN MEDICATION (NON-FORMULARY) (Brimonidine Tartrate/Timolol [Combigan 0.2%-0.5% OU SCH (10:00)
[2023-12-04] MEDS ORDERED: VANCOMYCIN 1,000 MG in DEXTROSE 5%-WATER - 250 ML IVPB SCH (10:00)
[2023-12-04 10:05] LABS: ALBUMIN 2.1 g/dl (3.4-5.0); CALCIUM 9.6 mg/dL (8.5-10.1); MAGNESIUM 2.4 mg/dL (1.8-2.4)
[2023-12-04 10:08] LABS: PHOSPHOROUS 2.7 mg/dL (2.5-4.9)
[2023-12-04 10:09] LABS: BILIRUBIN,TOTAL 0.8 mg/dL (0.2-1); TOT PROT 5.7 g/dl (6.4-8.2)
[2023-12-04 10:12] LABS: BLOOD UREA NITROGEN 29.2 mg/dL (7-18); CREATININE 2.4 mg/dL (0.55-1.3)
[2023-12-04] MEDS: APIXABAN 2.5 MG TABLET PO SCH (10:55)
[2023-12-04] MEDS: ALLOPURINOL 100 MG TABLET (FP) PO SCH (10:55)
[2023-12-04] MEDS: MAGNESIUM OXIDE 400 MG TABLET (FP) PO SCH ×2 (10:55→21:21)
[2023-12-04] MEDS: BRIMONIDINE TARTRATE 0.2% OPHTHALMIC 5 ML BOTTLE OU SCH ×2 (10:56→21:29)
[2023-12-04] MEDS: TAMSULOSIN HCL 0.4 MG CAP PO SCH (10:56)
[2023-12-04] MEDS: METOPROLOL TARTRATE 25 MG TABLET (FP) PO SCH ×2 (10:56→21:21)
[2023-12-04] MEDS: lamoTRIgine 25 MG TABLET PO SCH (10:56)
[2023-12-04] MEDS: BUDESONIDE/FORMOTEROL FUMARATE 160-4.5 MCG (10.3 GM INHALER) IH SCH ×2 (10:56→22:34)
[2023-12-04] MEDS: FERROUS SO4 325 MG TABLET (FP) PO SCH (10:56)
[2023-12-04] MEDS: TIMOLOL 0.5% OPHTHALMIC SOL 5 ML BOTTLE OU SCH ×2 (10:57→21:29)
[2023-12-04] MEDS: SODIUM CHLORIDE 1,000 ML IV STA (12:00)
[2023-12-04] MEDS: ACETAMINOPHEN 1000 MG/100 ML BAG IVPB ONE (13:04)
[2023-12-04 13:21] LABS: BASO % 0.4 % (0-2.0); EOS % 0.5 % (0-4.5); HEMATOCRIT 26.2 % (32.4-45.2); HEMOGLOBIN 8.6 GM/dL (10.7-15.3); LYMPH % 20.6 % (8-40); MCH 27.3 pg (25.7-33.7); MEAN CELL VOLUME 82.6 fl (80-96); NEUT % 70.5 % (42.8-82.8); PLATELET COUNT 226 10^3/uL (134-434); RBC 3.17 M/mm3 (3.60-5.2); RDW 18.7 % (11.6-15.6); WHITE BLOOD COUNT 10.4 K/mm3 (4.0-10.0)
[2023-12-04] MEDS: CEFEPIME HCL 1 GM VIAL (RESTRICTED TO ID) IVPB SCH (13:50)
[2023-12-04] MEDS: PIPERACILLIN/TAZOB 2.25 GM 2.25 GM in DEXTROSE 5%-WATER - 50 ML IVPB SCH (14:52)
[2023-12-04] MEDS: SODIUM CHLORIDE 500 ML IV STA (15:28)
[2023-12-04] MEDS: FAMOTIDINE 20 MG/50 ML IVPB 20 MG/50 ML MG IVPB ONE ×2 (18:37→19:51)
[2023-12-04 20:35] LABS: BASO % 0.3 % (0-2.0); EOS % 0.7 % (0-4.5); HEMATOCRIT 26.2 % (32.4-45.2); HEMOGLOBIN 8.5 GM/dL (10.7-15.3); LYMPH % 22.1 % (8-40); MCH 26.6 pg (25.7-33.7); MCHC 32.4 g/dl (32.0-36.0); MEAN CELL VOLUME 82.3 fl (80-96); MONO % 9.3 % (3.8-10.2); NEUT % 67.6 % (42.8-82.8); PLATELET COUNT 219 10^3/uL (134-434); RBC 3.18 M/mm3 (3.60-5.2); RDW 18.6 % (11.6-15.6); WHITE BLOOD COUNT 10.1 K/mm3 (4.0-10.0)
[2023-12-04] MEDS ORDERED: VANCOMYCIN/WATER FOR INJ (PEG) 1,000 MG/200 ML BAG IVPB SCH (21:00)
[2023-12-04] MEDS ORDERED: CEFEPIME 0.5 GM in DEXTROSE 5%-WATER - 100 ML IVPB SCH (21:00)
[2023-12-04] MEDS: ATORVASTATIN CA 10 MG TABLET (FP) PO SCH (21:20)
[2023-12-04] MEDS ORDERED: ATORVASTATIN CA 10 MG TABLET (FP) PO SCH (22:00)
[2023-12-05] MEDS: PANTOPRAZOLE 40 MG TABLET PO SCH (06:16)
[2023-12-05] MEDS: ALLOPURINOL 100 MG TABLET (FP) PO SCH (09:11)
[2023-12-05 10:04] LABS: BASO % 0.6 % (0-2.0); EOS % 1.4 % (0-4.5); HEMATOCRIT 26.2 % (32.4-45.2); HEMOGLOBIN 8.5 GM/dL (10.7-15.3); LYMPH % 23.1 % (8-40); MCH 26.8 pg (25.7-33.7); MCHC 32.5 g/dl (32.0-36.0); MEAN CELL VOLUME 82.5 fl (80-96); MEAN PLT VOLUME 8.6 fl (7.5-11.1); MONO % 9.1 % (3.8-10.2); NEUT % 65.8 % (42.8-82.8); PLATELET COUNT 227 10^3/uL (134-434); RBC 3.18 M/mm3 (3.60-5.2); RDW 18.4 % (11.6-15.6); WHITE BLOOD COUNT 9.5 K/mm3 (4.0-10.0)
[2023-12-05 10:26] LABS: POTASSIUM 4.4 mmol/L (3.5-5.1)
[2023-12-05 10:30] LABS: ALBUMIN 1.7 g/dl (3.4-5.0); BLOOD UREA NITROGEN 28.1 mg/dL (7-18); CALCIUM 8.9 mg/dL (8.5-10.1); MAGNESIUM 2.4 mg/dL (1.8-2.4)
[2023-12-05 10:33] LABS: CREATININE 2.3 mg/dL (0.55-1.3)
[2023-12-05 10:35] LABS: BILIRUBIN,TOTAL 0.8 mg/dL (0.2-1); TOT PROT 5.1 g/dl (6.4-8.2)
[2023-12-05] MEDS: FERROUS SO4 325 MG TABLET (FP) PO SCH (12:30)
[2023-12-05] MEDS: lamoTRIgine 25 MG TABLET PO SCH (12:32)
[2023-12-05] MEDS: TAMSULOSIN HCL 0.4 MG CAP PO SCH (12:32)
[2023-12-05] MEDS: FLUCONAZOLE 100 MG TABLET (UD) PO ONE (13:58)
[2023-12-06 09:44] LABS: INR 1.38 (0.83-1.09); PROTHROMBIN TIME (PATIENT) 15.9 SEC (9.7-13.0)
[2023-12-06 09:45] LABS: BASO % 0.6 % (0-2.0); EOS % 1.5 % (0-4.5); HEMATOCRIT 25.9 % (32.4-45.2); HEMOGLOBIN 8.4 GM/dL (10.7-15.3); LYMPH % 30.8 % (8-40); MCH 26.5 pg (25.7-33.7); MCHC 32.4 g/dl (32.0-36.0); MEAN CELL VOLUME 81.8 fl (80-96); MEAN PLT VOLUME 8.5 fl (7.5-11.1); MONO % 8.9 % (3.8-10.2); NEUT % 58.2 % (42.8-82.8); PLATELET COUNT 221 10^3/uL (134-434); RBC 3.16 M/mm3 (3.60-5.2); RDW 18.3 % (11.6-15.6); WHITE BLOOD COUNT 8.8 K/mm3 (4.0-10.0)
[2023-12-06] MEDS: FLUCONAZOLE 100 MG TABLET (UD) PO SCH (09:54)
[2023-12-06 10:07] LABS: POTASSIUM 4.5 mmol/L (3.5-5.1)
[2023-12-06 10:09] LABS: MAGNESIUM 2.7 mg/dL (1.8-2.4)
[2023-12-06 10:10] LABS: ALBUMIN 1.7 g/dl (3.4-5.0)
[2023-12-06 10:12] LABS: BLOOD UREA NITROGEN 27.9 mg/dL (7-18)
[2023-12-06 10:14] LABS: BILIRUBIN,TOTAL 0.7 mg/dL (0.2-1); TOT PROT 5.1 g/dl (6.4-8.2)
[2023-12-06 11:16] LABS: CREATININE 2.2 mg/dL (0.55-1.3)
[2023-12-06] MEDS: SILVER SULFADIAZINE 1% TOP CREAM 50 GM JAR TP SCH (12:34)
[2023-12-06] MEDS: NAPH,MB-DB/K PH,MBDB POWDER PACKET PO ONE (16:00)
[2023-12-06] MEDS: DIGOXIN 0.25 MG TABLET PO ONE (17:38)
[2023-12-07] MEDS: oxyCODONE HCL 5 MG TABLET PO PRN (00:18)
[2023-12-07] MEDS: METOPROLOL TARTRATE 5 MG/5 ML VIAL IVPUSH PRN (03:14)
[2023-12-07 06:51] LABS: BASO % 0.6 % (0-2.0); EOS % 1.6 % (0-4.5); HEMATOCRIT 24.6 % (32.4-45.2); HEMOGLOBIN 7.8 GM/dL (10.7-15.3); LYMPH % 25.9 % (8-40); MCH 26.1 pg (25.7-33.7); MCHC 31.6 g/dl (32.0-36.0); MEAN CELL VOLUME 82.7 fl (80-96); MEAN PLT VOLUME 8.7 fl (7.5-11.1); MONO % 9.5 % (3.8-10.2); NEUT % 62.4 % (42.8-82.8); PLATELET COUNT 217 10^3/uL (134-434); RBC 2.97 M/mm3 (3.60-5.2); RDW 17.8 % (11.6-15.6); WHITE BLOOD COUNT 11.1 K/mm3 (4.0-10.0)
[2023-12-07 07:08] LABS: POTASSIUM 4.3 mmol/L (3.5-5.1)
[2023-12-07 07:11] LABS: ALBUMIN 1.6 g/dl (3.4-5.0); CALCIUM 8.8 mg/dL (8.5-10.1)
[2023-12-07 07:12] LABS: BLOOD UREA NITROGEN 29.8 mg/dL (7-18); MAGNESIUM 2.8 mg/dL (1.8-2.4)
[2023-12-07 07:14] LABS: CREATININE 2.3 mg/dL (0.55-1.3)
[2023-12-07 07:15] LABS: BILIRUBIN,TOTAL 0.6 mg/dL (0.2-1); PHOSPHOROUS 1.8 mg/dL (2.5-4.9); TOT PROT 4.8 g/dl (6.4-8.2)
[2023-12-07] MEDS: DIGOXIN 0.125 MG TABLET PO SCH (09:08)
[2023-12-07] MEDS: ACETAMINOPHEN 325 MG TABLET (FP) PO PRN (13:30)
[2023-12-07 17:09] LABS: FREE KAPPA,SERUM 24.5 mg/L (3.3-19.4)
[2023-12-07 19:08] LABS: IG A QN SERUM. 102 mg/dL (64-422)
[2023-12-07] MEDS: POLYETHYLENE GLYCOL (HEALTHYLAX) 3350 17 GM PACKET PO SCH (21:43)
[2023-12-08 07:29] LABS: POTASSIUM 4.8 mmol/L (3.5-5.1)
[2023-12-08 07:33] LABS: BASO % 0.4 % (0-2.0); CALCIUM 9.1 mg/dL (8.5-10.1); EOS % 1.9 % (0-4.5); HEMATOCRIT 24.7 % (32.4-45.2); HEMOGLOBIN 7.9 GM/dL (10.7-15.3); LYMPH % 29.8 % (8-40); MCH 26.5 pg (25.7-33.7); MEAN CELL VOLUME 82.8 fl (80-96); MEAN PLT VOLUME 9.4 fl (7.5-11.1); MONO % 7.6 % (3.8-10.2); NEUT % 60.3 % (42.8-82.8); PLATELET COUNT 249 10^3/uL (134-434); RBC 2.99 M/mm3 (3.60-5.2); RDW 18.4 % (11.6-15.6); WHITE BLOOD COUNT 10.7 K/mm3 (4.0-10.0)
[2023-12-08 07:34] LABS: ALBUMIN 1.6 g/dl (3.4-5.0); BLOOD UREA NITROGEN 29.2 mg/dL (7-18); MAGNESIUM 2.8 mg/dL (1.8-2.4)
[2023-12-08 07:36] LABS: CREATININE 2.2 mg/dL (0.55-1.3)
[2023-12-08 07:38] LABS: BILIRUBIN,TOTAL 0.6 mg/dL (0.2-1)
[2023-12-08 07:39] LABS: TOT PROT 4.7 g/dl (6.4-8.2)
[2023-12-08] MEDS ORDERED: DEXTROSE 5%-WATER - 1,000 ML IV SCH (17:30)
[2023-12-08] MEDS: SENNOSIDES 8.8 MG/5 ML SYRUP PO SCH (22:52)
[2023-12-09] MEDS: MIDODRINE HCL 2.5 MG TABLET PO SCH (10:29)
[2023-12-09 11:56] LABS: BASO % 0.5 % (0-2.0); EOS % 2.3 % (0-4.5); HEMATOCRIT 23.1 % (32.4-45.2); HEMOGLOBIN 7.6 GM/dL (10.7-15.3); LYMPH % 30.5 % (8-40); MCH 26.9 pg (25.7-33.7); MCHC 32.7 g/dl (32.0-36.0); MEAN CELL VOLUME 82.1 fl (80-96); MEAN PLT VOLUME 8.5 fl (7.5-11.1); MONO % 8.3 % (3.8-10.2); NEUT % 58.4 % (42.8-82.8); PLATELET COUNT 226 10^3/uL (134-434); RBC 2.81 M/mm3 (3.60-5.2); WHITE BLOOD COUNT 10.1 K/mm3 (4.0-10.0)
[2023-12-09] MEDS ORDERED: FUROSEMIDE 40 MG/4 ML INJECTABLE VIAL IVPUSH ONE (12:00)
[2023-12-09 12:17] LABS: POTASSIUM 4.4 mmol/L (3.5-5.1)
[2023-12-09 12:19] LABS: ALBUMIN 1.6 g/dl (3.4-5.0); CALCIUM 8.7 mg/dL (8.5-10.1); MAGNESIUM 2.6 mg/dL (1.8-2.4)
[2023-12-09 12:21] LABS: BLOOD UREA NITROGEN 27.5 mg/dL (7-18)
[2023-12-09 12:22] LABS: PHOSPHOROUS 1.7 mg/dL (2.5-4.9)
[2023-12-09 12:24] LABS: BILIRUBIN,TOTAL 0.6 mg/dL (0.2-1); TOT PROT 4.7 g/dl (6.4-8.2)
[2023-12-09] MEDS: FUROSEMIDE 40 MG/4 ML INJECTABLE VIAL IVPUSH ONE (14:57)
[2023-12-09] MEDS: LIDOCAINE 4% PATCH TP SCH (19:45)
[2023-12-09] MEDS: LIDOCAINE PATCH REMOVAL MC SCH (21:12)
[2023-12-10 08:04] LABS: BASO % 0.6 % (0-2.0); EOS % 2.3 % (0-4.5); HEMATOCRIT 24.5 % (32.4-45.2); HEMOGLOBIN 7.9 GM/dL (10.7-15.3); LYMPH % 33.6 % (8-40); MCHC 32.4 g/dl (32.0-36.0); MEAN CELL VOLUME 83.5 fl (80-96); MEAN PLT VOLUME 9.3 fl (7.5-11.1); MONO % 8.5 % (3.8-10.2); PLATELET COUNT 253 10^3/uL (134-434); RBC 2.93 M/mm3 (3.60-5.2); RDW 18.2 % (11.6-15.6); WHITE BLOOD COUNT 9.9 K/mm3 (4.0-10.0)
[2023-12-10 08:20] LABS: POTASSIUM 4.7 mmol/L (3.5-5.1)
[2023-12-10 08:23] LABS: CALCIUM 8.9 mg/dL (8.5-10.1)
[2023-12-10 08:25] LABS: ALBUMIN 1.6 g/dl (3.4-5.0); BLOOD UREA NITROGEN 27.4 mg/dL (7-18); MAGNESIUM 2.8 mg/dL (1.8-2.4)
[2023-12-10 08:29] LABS: BILIRUBIN,TOTAL 0.6 mg/dL (0.2-1); TOT PROT 4.9 g/dl (6.4-8.2)
[2023-12-10] MEDS: MIDODRINE HCL 5 MG TABLET PO SCH ×2 (09:52→13:43)
[2023-12-10] MEDS: FUROSEMIDE 40 MG/4 ML INJECTABLE VIAL IVPUSH SCH (11:49)
[2023-12-10] MEDS: MIDODRINE HCL 5 MG TABLET PO ONE (12:30)
[2023-12-11] MEDS: SODIUM CHLORIDE 500 ML IV STA ×2 (05:28→17:47)
[2023-12-11 08:45] LABS: BASO % 0.4 % (0-2.0); EOS % 2.5 % (0-4.5); HEMATOCRIT 23.5 % (32.4-45.2); HEMOGLOBIN 7.7 GM/dL (10.7-15.3); LYMPH % 33.3 % (8-40); MCH 26.9 pg (25.7-33.7); MCHC 32.7 g/dl (32.0-36.0); MEAN CELL VOLUME 82.3 fl (80-96); MEAN PLT VOLUME 8.3 fl (7.5-11.1); MONO % 9.2 % (3.8-10.2); NEUT % 54.6 % (42.8-82.8); PLATELET COUNT 246 10^3/uL (134-434); RBC 2.85 M/mm3 (3.60-5.2); RDW 18.7 % (11.6-15.6); WHITE BLOOD COUNT 9.1 K/mm3 (4.0-10.0)
[2023-12-11 09:07] LABS: ALBUMIN 1.7 g/dl (3.4-5.0); BLOOD UREA NITROGEN 27.8 mg/dL (7-18); POTASSIUM 4.4 mmol/L (3.5-5.1)
[2023-12-11 09:09] LABS: CALCIUM 8.7 mg/dL (8.5-10.1); MAGNESIUM 2.8 mg/dL (1.8-2.4)
[2023-12-11 09:10] LABS: CREATININE 2.2 mg/dL (0.55-1.3); PHOSPHOROUS 1.9 mg/dL (2.5-4.9)
[2023-12-11 09:12] LABS: BILIRUBIN,TOTAL 0.5 mg/dL (0.2-1); TOT PROT 4.9 g/dl (6.4-8.2)
[2023-12-11] MEDS: LACTULOSE 20 GM/30 ML UDC (FOR ORAL USE ONLY) PO ONE (17:47)
[2023-12-12] MEDS: LACTATED RINGERS SOLUTION 1000 ML INFUS.BAG IV ONE (06:28)
[2023-12-12] MEDS: FUROSEMIDE 40 MG/4 ML INJECTABLE VIAL IVPUSH SCH (10:31)
[2023-12-12 12:16] LABS: BASO % 0.5 % (0-2.0); EOS % 2.3 % (0-4.5); HEMATOCRIT 25.4 % (32.4-45.2); HEMOGLOBIN 8.1 GM/dL (10.7-15.3); MCH 26.3 pg (25.7-33.7); MCHC 31.8 g/dl (32.0-36.0); MEAN CELL VOLUME 82.5 fl (80-96); MEAN PLT VOLUME 8.2 fl (7.5-11.1); MONO % 8.6 % (3.8-10.2); NEUT % 63.6 % (42.8-82.8); PLATELET COUNT 270 10^3/uL (134-434); RBC 3.08 M/mm3 (3.60-5.2); RDW 18.3 % (11.6-15.6); WHITE BLOOD COUNT 9.7 K/mm3 (4.0-10.0)
[2023-12-12 12:25] LABS: POTASSIUM 4.4 mmol/L (3.5-5.1)
[2023-12-12 12:28] LABS: CALCIUM 9.2 mg/dL (8.5-10.1)
[2023-12-12 12:29] LABS: ALBUMIN 1.7 g/dl (3.4-5.0); MAGNESIUM 2.9 mg/dL (1.8-2.4)
[2023-12-12 12:32] LABS: CREATININE 2.1 mg/dL (0.55-1.3); PHOSPHOROUS 1.6 mg/dL (2.5-4.9)
[2023-12-12 12:33] LABS: BILIRUBIN,TOTAL 0.6 mg/dL (0.2-1); TOT PROT 5.2 g/dl (6.4-8.2)
[2023-12-12] MEDS: METOPROLOL TARTRATE 25 MG TABLET (FP) PO SCH (22:14)
[2023-12-13 08:13] LABS: POTASSIUM 4.6 mmol/L (3.5-5.1)
[2023-12-13 08:19] LABS: BLOOD UREA NITROGEN 28.1 mg/dL (7-18); CALCIUM 9.2 mg/dL (8.5-10.1)
[2023-12-13 08:20] LABS: ALBUMIN 1.7 g/dl (3.4-5.0)
[2023-12-13 08:22] LABS: CREATININE 2.2 mg/dL (0.55-1.3)
[2023-12-13 08:23] LABS: BILIRUBIN,TOTAL 0.6 mg/dL (0.2-1)
[2023-12-13 08:24] LABS: TOT PROT 5.3 g/dl (6.4-8.2)
[2023-12-13 08:43] LABS: BASO % 0.6 % (0-2.0); EOS % 2.2 % (0-4.5); HEMATOCRIT 25.9 % (32.4-45.2); HEMOGLOBIN 8.3 GM/dL (10.7-15.3); LYMPH % 27.4 % (8-40); MCH 26.8 pg (25.7-33.7); MCHC 32.1 g/dl (32.0-36.0); MEAN CELL VOLUME 83.3 fl (80-96); MEAN PLT VOLUME 9.2 fl (7.5-11.1); MONO % 8.7 % (3.8-10.2); NEUT % 61.1 % (42.8-82.8); PLATELET COUNT 279 10^3/uL (134-434); RBC 3.11 M/mm3 (3.60-5.2); RDW 18.1 % (11.6-15.6); WHITE BLOOD COUNT 9.3 K/mm3 (4.0-10.0)
[2023-12-13] MEDS: DIGOXIN 0.125 MG TABLET PO SCH (17:31)
[2023-12-13] MEDS: METOPROLOL TARTRATE 25 MG TABLET (FP) PO SCH (22:54)
[2023-12-14 08:14] LABS: BASO % 0.4 % (0-2.0); EOS % 1.7 % (0-4.5); HEMATOCRIT 24.8 % (32.4-45.2); HEMOGLOBIN 7.8 GM/dL (10.7-15.3); LYMPH % 27.6 % (8-40); MCH 26.3 pg (25.7-33.7); MCHC 31.7 g/dl (32.0-36.0); MEAN CELL VOLUME 83.1 fl (80-96); MEAN PLT VOLUME 8.9 fl (7.5-11.1); MONO % 9.7 % (3.8-10.2); NEUT % 60.6 % (42.8-82.8); PLATELET COUNT 263 10^3/uL (134-434); RBC 2.98 M/mm3 (3.60-5.2); RDW 18.2 % (11.6-15.6); WHITE BLOOD COUNT 9.1 K/mm3 (4.0-10.0)
[2023-12-14 08:27] LABS: POTASSIUM 4.7 mmol/L (3.5-5.1)
[2023-12-14 08:30] LABS: CALCIUM 9.1 mg/dL (8.5-10.1)
[2023-12-14 08:31] LABS: ALBUMIN 1.7 g/dl (3.4-5.0); BLOOD UREA NITROGEN 30.8 mg/dL (7-18); MAGNESIUM 2.8 mg/dL (1.8-2.4)
[2023-12-14 08:33] LABS: CREATININE 2.4 mg/dL (0.55-1.3); PHOSPHOROUS 1.7 mg/dL (2.5-4.9)
[2023-12-14 08:34] LABS: BILIRUBIN,TOTAL 0.4 mg/dL (0.2-1)
[2023-12-14] MEDS: NAPH,MB-DB/K PH,MBDB POWDER PACKET PO ONE (15:03)
[2023-12-15 07:31] LABS: BASO % 0.6 % (0-2.0); HEMATOCRIT 26.5 % (32.4-45.2); HEMOGLOBIN 8.5 GM/dL (10.7-15.3); LYMPH % 30.8 % (8-40); MCH 26.6 pg (25.7-33.7); MEAN CELL VOLUME 83.3 fl (80-96); MEAN PLT VOLUME 8.6 fl (7.5-11.1); MONO % 9.2 % (3.8-10.2); NEUT % 57.4 % (42.8-82.8); PLATELET COUNT 266 10^3/uL (134-434); RBC 3.19 M/mm3 (3.60-5.2); RDW 17.9 % (11.6-15.6); WHITE BLOOD COUNT 9.8 K/mm3 (4.0-10.0)
[2023-12-15 07:44] LABS: POTASSIUM 4.6 mmol/L (3.5-5.1)
[2023-12-15 07:49] LABS: CALCIUM 9.4 mg/dL (8.5-10.1)
[2023-12-15 07:50] LABS: ALBUMIN 1.9 g/dl (3.4-5.0); BLOOD UREA NITROGEN 29.9 mg/dL (7-18); MAGNESIUM 2.8 mg/dL (1.8-2.4)
[2023-12-15 07:53] LABS: BILIRUBIN,TOTAL 0.5 mg/dL (0.2-1); CREATININE 2.6 mg/dL (0.55-1.3); PHOSPHOROUS 1.9 mg/dL (2.5-4.9); TOT PROT 5.2 g/dl (6.4-8.2)
[2023-12-15] MEDS: SODIUM PHOSPHATE - 30 MM in SODIUM CHLORIDE 500 ML IVPB ONE (19:23)
[2023-12-16] MEDS ORDERED: ACETAMINOPHEN 325 MG TABLET (FP) PO PRN (16:04)
[2023-12-16] MEDS: oxyCODONE HCL 5 MG TABLET PO PRN (17:46)
[2023-12-19 14:54] LABS: BASO % 0.5 % (0-2.0); EOS % 1.4 % (0-4.5); HEMATOCRIT 26.4 % (32.4-45.2); HEMOGLOBIN 8.2 GM/dL (10.7-15.3); LYMPH % 27.5 % (8-40); MCH 25.8 pg (25.7-33.7); MCHC 31.2 g/dl (32.0-36.0); MEAN CELL VOLUME 82.8 fl (80-96); MEAN PLT VOLUME 8.2 fl (7.5-11.1); MONO % 9.5 % (3.8-10.2); NEUT % 61.1 % (42.8-82.8); PLATELET COUNT 255 10^3/uL (134-434); RBC 3.19 M/mm3 (3.60-5.2); RDW 18.3 % (11.6-15.6); WHITE BLOOD COUNT 11.4 K/mm3 (4.0-10.0)
[2023-12-19 15:10] LABS: POTASSIUM 4.6 mmol/L (3.5-5.1)
[2023-12-19 15:12] LABS: ALBUMIN 1.9 g/dl (3.4-5.0); CALCIUM 9.1 mg/dL (8.5-10.1)
[2023-12-19 15:16] LABS: CREATININE 2.8 mg/dL (0.55-1.3)
[2023-12-19 15:17] LABS: BILIRUBIN,TOTAL 0.5 mg/dL (0.2-1); TOT PROT 5.4 g/dl (6.4-8.2)
[2023-12-21 07:49] LABS: BASO % 0.7 % (0-2.0); EOS % 2.3 % (0-4.5); HEMATOCRIT 23.5 % (32.4-45.2); HEMOGLOBIN 7.6 GM/dL (10.7-15.3); LYMPH % 28.8 % (8-40); MCH 26.6 pg (25.7-33.7); MCHC 32.3 g/dl (32.0-36.0); MEAN CELL VOLUME 82.2 fl (80-96); MEAN PLT VOLUME 8.4 fl (7.5-11.1); MONO % 8.4 % (3.8-10.2); NEUT % 59.8 % (42.8-82.8); PLATELET COUNT 239 10^3/uL (134-434); RBC 2.86 M/mm3 (3.60-5.2); RDW 17.9 % (11.6-15.6)
[2023-12-21 08:01] LABS: POTASSIUM 4.6 mmol/L (3.5-5.1)
[2023-12-21 08:04] LABS: ALBUMIN 1.7 g/dl (3.4-5.0); BLOOD UREA NITROGEN 42.9 mg/dL (7-18); CALCIUM 8.9 mg/dL (8.5-10.1)
[2023-12-21 08:08] LABS: CREATININE 2.9 mg/dL (0.55-1.3)
[2023-12-21 08:09] LABS: BILIRUBIN,TOTAL 0.6 mg/dL (0.2-1); TOT PROT 4.7 g/dl (6.4-8.2)
[2023-12-21 12:34] VITALS: RESP 19
[2023-12-21 15:06] VITALS: BP 156/75; PULSE 175; TEMP 97.6
== END 2023-12-21 18:44 | disposition home or self-care (01) | DRG 291 ==
LOC: JER 18:52 → JERBED 21:35 → J8W 12-04 03:46 → J4S 12-04 15:55
PROVIDERS: ADMIT Internal Medicine; ATTEND Internal Medicine
DX: I13.0 Hypertensive heart and chronic kidney disease with heart failure and stage 1 through stage 4 chronic kidney disease, or unspecified chronic kidney disease (principal); I50.33 Acute on chronic diastolic (congestive) heart failure; C90.00 Multiple myeloma not having achieved remission; F11.20 Opioid dependence, uncomplicated; N39.0 Urinary tract infection, site not specified; I48.19 Other persistent atrial fibrillation; Z68.41 Body mass index [BMI] 40.0-44.9, adult; N18.30 Chronic kidney disease, stage 3 unspecified; J44.9 Chronic obstructive pulmonary disease, unspecified; J45.909 Unspecified asthma, uncomplicated; D64.9 Anemia, unspecified; E78.5 Hyperlipidemia, unspecified; E86.0 Dehydration; M79.81 Nontraumatic hematoma of soft tissue; R33.9 Retention of urine, unspecified; K59.00 Constipation, unspecified; E66.01 Morbid (severe) obesity due to excess calories
CPT/HCPCS: 0241U-QW; 36415; 71045-TC-FY; 72131-TC; 72192-TC; 73590-TC-LT-FY; 73700-TC-RT; 74177-TC; 80048; 80053; 81003; 82232; 82272; 82728; 82784; 82803; 82962; 83540; 83550; 83605; 83735; 83880; 83883; 84100; 84155; 84165; 84484; 85025; 85045; 85610; 85651; 85730; 86140; 86334; 86850; 86900; 86901; 87040; 87077; 87086; 87186; 93005; 93010; 93970-TC; 97161-GP; 99285-25; G0480; J0131